=== PATIENT | male | born 1935 | race Caucasian/White ===

== ENCOUNTER → 2017-01-16 | Outpatient (CLI) | payer OTHER ==
[~2017-01-16] MED LIST: ACT30 PO; ASPI325T4 PO; DOXA4TAB2 PO; GLC/500 PO; GLIP-197 PO; LOSA50TA6 PO; METO100T7 PO; OMEP20CA9 PO; SIMV5TAB5 PO; TRIA37.5 PO
[2017-01-16 12:57] LABS: BLOOD UREA NITROGEN 46 mg/dl (7-18); BUN/CREATININE RATIO 24.4 (10-20); CALCIUM 9.4 mg/dl (8.5-10.1); CARBON DIOXIDE 23 mmol/L (21-32); CHLORIDE 108 mmol/L (98-107); CHOLESTEROL 154 mg/dl (0-200); GLUCOSE 143 mg/dl (70-99); POTASSIUM 4.2 mmol/L (3.5-5.1); SODIUM 140 mmol/L (136-145)
[2017-01-16 13:00] LABS: CHOLESTEROL/HDL RATIO 5.1; HDL CHOLESTEROL 30 mg/dl; TRIGLYCERIDES 182 mg/dl (0-150); VERY LOW DENSITY LIPOPROT CALC 36 mg/dl
[2017-01-16 13:09] LABS: ESTIMATED AVERAGE GLUCOSE 174 mg/dl; HA1C FLAG Normal (Normal)
== END | disposition home or self-care (01) ==
LOC: C.LABSPEC 12:16
PROVIDERS: ATTEND Internal Medicine
DX: I10 Essential (primary) hypertension (principal); E78.5 Hyperlipidemia, unspecified; N18.9 Chronic kidney disease, unspecified; E11.9 Type 2 diabetes mellitus without complications

== ENCOUNTER → 2017-07-21 | Outpatient (CLI) | payer OTHER ==
[2017-07-21 13:16] LABS: ALT/SGPT 15 U/L (12-78); AST/SGOT 14 U/L (15-37); BLOOD UREA NITROGEN 51 mg/dl (7-18); BUN/CREATININE RATIO 25.3 (10-20); CALCIUM 9.4 mg/dl (8.5-10.1); CARBON DIOXIDE 24 mmol/L (21-32); CHLORIDE 106 mmol/L (98-107); CHOLESTEROL 175 mg/dl (0-200); GLUCOSE 119 mg/dl (70-99); POTASSIUM 4.4 mmol/L (3.5-5.1); SODIUM 139 mmol/L (136-145); TRIGLYCERIDES 308 mg/dl (0-150); VERY LOW DENSITY LIPOPROT CALC 62 mg/dl
[2017-07-21 13:19] LABS: ALKALINE PHOSPHATASE 62 U/L (45-117); CHOLESTEROL/HDL RATIO 5.6; HDL CHOLESTEROL 31 mg/dl
[2017-07-21 13:25] LABS: ESTIMATED AVERAGE GLUCOSE 169 mg/dl; HA1C FLAG Normal (Normal)
== END | disposition home or self-care (01) ==
LOC: C.LABSPEC 12:27
PROVIDERS: ATTEND Internal Medicine
DX: I10 Essential (primary) hypertension (principal); E78.5 Hyperlipidemia, unspecified; E11.65 Type 2 diabetes mellitus with hyperglycemia; N18.9 Chronic kidney disease, unspecified

== ENCOUNTER → 2018-01-19 | Outpatient (CLI) | payer OTHER ==
[2018-01-19 14:03] LABS: BASO % 0.4 %; BASO ABS # 0.03 K/uL (0-0.2); EOS % 1.2 %; EOS ABS # 0.08 K/uL (0-0.5); HEMATOCRIT 37.7 % (42-52); HEMOGLOBIN 13.1 g/dL (14.0-18.0); IG# 0.03 K/uL (0.00-0.02); LYMPH % 27.9 %; LYMPH ABS # 1.87 K/uL (1.2-3.4); MEAN CORPUSCULAR HEMOGLOBIN 32.7 pg (25-34); MEAN CORPUSCULAR HGB CONC 34.7 g/dl (32-36); MEAN PLATELET VOLUME 10.2 fL (7.4-10.4); MONO ABS # 0.54 K/uL (0.11-0.59); NEUT % 62.1 %; NEUT ABS # 4.16 K/uL (1.4-6.5); PLATELET COUNT 244 K/uL (130-400); RED CELL DISTRIBUTION WIDTH CV 13.3 % (11.5-14.5); RED CELL DISTRIBUTION WIDTH SD 46.1 fL (36.4-46.3); WHITE BLOOD COUNT 6.71 K/uL (4.8-10.8)
[2018-01-19 14:24] LABS: ALBUMIN 3.7 gm/dl (3.4-5.0); ALT/SGPT 16 U/L (12-78); BLOOD UREA NITROGEN 54 mg/dl (7-18); CALCIUM 9.2 mg/dl (8.5-10.1); CARBON DIOXIDE 23 mmol/L (21-32); CHOLESTEROL 159 mg/dl (0-200); CREATININE 2.24 mg/dl (0.60-1.40); GLUCOSE 213 mg/dl (70-99); POTASSIUM 4.1 mmol/L (3.5-5.1); SODIUM 136 mmol/L (136-145)
[2018-01-19 14:27] LABS: ALKALINE PHOSPHATASE 86 U/L (45-117); AST/SGOT 10 U/L (15-37); LDL CHOLESTEROL (DIRECT) 99 mg/dl; TOTAL PROTEIN 7.7 gm/dl (6.4-8.2)
[2018-01-20 07:23] LABS: HEMOGLOBIN A1C 9.8 % (4.5-5.6)
== END | disposition home or self-care (01) ==
LOC: C.LABSPEC 12:49
PROVIDERS: ATTEND Internal Medicine
DX: E11.65 Type 2 diabetes mellitus with hyperglycemia (principal); I10 Essential (primary) hypertension; E78.5 Hyperlipidemia, unspecified

== ENCOUNTER 2023-04-06 10:12 | Inpatient (IN) ==
--- NOTE | 2023-04-06 12:51 | XRay Report ---
XR chest 1V portable HISTORY: 88 years-old Male acute confusion acutely altered mental status COMPARISON: 12/08/2012 TECHNIQUE: Supine AP view of the chest FINDINGS: Cardiac silhouette is enlarged. Pulmonary vascular congestion with interstitial coarsening. Layering pleural effusions with bibasilar consolidation. Atherosclerosis of the aorta. No pneumothorax. Bones appear grossly intact. IMPRESSION: 1. Cardiomegaly with pulmonary edema. 2. Layering pleural effusions with bibasilar consolidation. ACT 112: Negative or not required by law. The above report was generated using voice recognition software. It may contain grammatical, syntax o r spelling errors. Electronically signed by: Juice Lowry M.D. 04/06/2023 12:50 PM
--- NOTE | 2023-04-06 13:03 | History & Physical Report ---
Date of Service April 06, 2023 Assessment & Plan (1) Acute metabolic encephalopathy: Plan: Current sedation due to multiple benzodiazepines and anti-psychotic given in [place] - will wait for these to wean off. Agitated prior to this and confused per his . Currently maintaining airway without hypercapnia on ABG. May need further antipsychotics as he wakes up. (2) Acute respiratory failure with hypoxia: Plan: Aim O2 sats > 94% Secondary to sedation, pulmonary edema and bilateral pleural effusion although unclear if these are acute or chronic (3) Elevated LFTs: Plan: Main presenting symptom of abdominal pain, vomiting Nothing seen on CT A/P at [place] except possible gallstone and recommended US liver - ordered Hepatitis panel ordered Acetaminophen level negative ?acute cholecystitis ?ehrlichiosis (4) Pulmonary edema: Plan: With bilateral pleural effusions. BNP elevated. Hypervolemic on exam. ?chronic due to CKD vs. acute Troponin I appears stable - not consistent with GA, suspect demand-ischemia. TTE ordered. (5) Ehrlichiosis: Plan: Possible diagnosis - single inclusion body on one monocyte present on smear - concerning for ehrlichiosis. Will be assessed by pathology tomorrow. Decreased WBC (although this is similar to prior labs last year), elevated LFTs, mild thrombocytopenia Start doxycycline 100mg IV BID (6) Iron deficiency anemia: Plan: Concern for acute vs. chronic GI bleed. Appears relatively stable since [place] ER however. History of gastric ulcers Pantoprazole 80mg IV now then 40mg IV BID Iron sats 5% Type and cross sent to hold 2 units and blood consent signed Aim Hgb > 7 FOB ordered LDH also elevated therefore possibly some component of hemolytic anemia ?related to ehrlichiosis. (7) Abnormal urine sediment: Plan: Long string sediment in urine Per lab does not appear consistent with clot or parasite Surgical pathology on sample ordered (8) Hypertension: Plan: Hold all his anti-hypertensives at this time due to low BP. Lasix 40mg IV given this morning, will defer giving ongoing pending repeat labs and I&Os (9) Hematuria: Plan: Unclear cause of hematuria at this time as nothing seen on CT A/P at [place] ?traumatic catheterization Hold aspirin - unclear why he takes this, no Hx GA or stroke (10) Chronic kidney disease, stage 4 (severe): Plan: Cr at baseline. UA with protein and blood Will get Protein/CR ratio to assess for nephrotic range proteinuria (11) BPH (benign prostatic hyperplasia): Plan: Hold doxazosin, mulligan catheter in place (12) T2DM (type 2 diabetes mellitus): Plan: HbA1C 7.5 in April 2022 Hold all diabetic medication at this time. Restart on basal bolus insulin as needed once glucose starts to improve. BSG q2h until stable with hypoglycemia protocol. Avoid D5W due to hypervolemia. (13) Hypoglycemia: (14) Bilateral pleural effusion: Plan VTE Prophyalxis - chemical deferred given possibility of acute GI bleed Diet - NPO Disposition - admit to PCU Admission and Anticipated Discharge Date Admission Date: April 06, 2023 History of Present Illness Chief Complaint: Altered mental status Primary Care Provider: Mirtha Malloy Nimesh Lind is an 88 year old male who was accepted by my colleague for transfer from [facility] due to altered mental status. Unable to get any history from the patient due to current sedation after benzodiazepines given at [place]. His and two daughters later arrived at bedside to give history. They report significant decline over the last two days with him complaining of abdominal pain, one episode of vomiting and diarrhea. No fever, chills, shortness of breath, chest pain. He has a cough although unclear how long this has been going on for. Associated generalized weakness, confusion and sleeping throughout the day. His and daughters are in disagreement about more chronic decline however and it appears over the last year or 6 months he has been getting weaker and increased sleeping throughout the day but nothing like the last few days. In the ER at [place] there was some concern of sepsis with hypoglycemia (he is on glipizide and Lantus for his diabetes) so he received Zosyn, 1L NSS bolus and dextrose. He was agitated and pulling at his IVs therefore initially given droperidol and later midazolam then lorazepam prior to transfer. Subsequent CT and lab workup was concerning for elevated LFTs with leukopenia without subsequent imaging changes on CT. Allergies Allergy/AdvReac Type Severity Reaction Status Date / Time No Known Allergies Allergy Unverified 07/09/16 10:03 Home Medications Medication Instructions Recorded Confirmed Type allopurinol 100 mg tablet 100 mg PO DAILY 04/06/23 04/06/23 History aspirin 325 mg tablet 325 mg PO DAILY 04/06/23 04/06/23 History doxazosin 4 mg tablet 4 mg PO HS 04/06/23 04/06/23 History glipizide 5 mg tablet, extended 5 mg PO BID 04/06/23 04/06/23 History release 24 hr insulin glargine 100 unit/mL (3 12 unit subcut DAILY 04/06/23 04/06/23 History mL) subcutaneous pen (Lantus Solostar U-100 Insulin) losartan 50 mg tablet 50 mg PO DAILY 04/06/23 04/06/23 History metoprolol succinate 100 mg 100 mg PO DAILY 04/06/23 04/06/23 History tablet,extended release 24 hr omeprazole 20 mg capsule,delayed 20 mg PO DAILY 04/06/23 04/06/23 History release pioglitazone 30 mg tablet 30 mg PO DAILY 04/06/23 04/06/23 History simvastatin 5 mg tablet 5 mg PO HS 04/06/23 04/06/23 History triamterene 37.5 1 tab PO DAILY 04/06/23 04/06/23 History mg-hydrochlorothiazide 25 mg tablet Past Med/Surg History Medical History BPH (benign prostatic hyperplasia) Chronic kidney disease, stage 4 (severe) Essential tremor History of gastric ulcer Hyperlipidemia Hypertension Inguinal hernia T2DM (type 2 diabetes mellitus) Surgical History History of resection of small bowel Social History Smoking Status: Former smoker Age Quit Using Tobacco: 38; Hx Alcohol Use: No Hx Substance Use: No Preferred Language: Monegasque Communication Ability: Effective Melter Loader Required: No Beliefs That Will Affect Care: None Current Living Situation: Spouse Current Living Situation Comment: unable to take care of patient, needs assistance. Other Information That Helps Us Care for You: No Feels Safe at Home: Yes Safety Concerns: Feels Safe At This Time Assistive Devices: Cane, Denture - Upper, Denture - Lower and Glasses Review of Systems Review of Systems: Unobtainable due to cognitive status Physical Exam Constitutional: well developed; + not well nourished and no acute distress Eyes: + conjunctival abnormality (pale) ENMT: Mouth: + dry oral mucous membranes (no thrush noted) Respiratory: + labored breathing, + uses accessory muscles and + prolonged expiratory phase; not tachypneic Auscultation: + breath sounds absent (bibasal) and + diminished lung sounds (throughout); no crackles, no rales, no rhonchi and no wheezes Cardiovascular: Rate/Rhythm: regular rate and regular rhythm Heart Sounds: no murmur Vessels: no JVD Extremities: + pedal edema (2+ to knees pitting equal b/l); + abnormal capillary refill (reduced peripherally 7s, normal centrally) and no calf tenderness Gastrointestinal (Abdomen): Inspection/Auscultation: abdomen normal to i nspection, + abdomen distended and + hypoactive bowel sounds Percussion/Palpation: + abdomen tender (RUQ), + guarding and abdomen soft; abdomen not rigid Skin: + pallor Neurologic: + does not move all extremities (moving both upper extremities equally) and + not awake (mumbles to noxious stimuli) Psychiatric: Orientation: + not alert Results & Data Results & Data Laboratory Results [place] labs: Pertinent Labs 2:20am: Glucose 59, BUN 59.4, Cr 2.2, Jorgito 2.6, ALP 319, AST 221, ALT 153, Na 146, K 5.2, CO2 21.6, Lactate 1.7, Lipase 50 Troponin I HS 117 -> 123 (4:15am) -> 118 [7:10am] INR 1.35, PTT 27.2 WBC 2.77 (neutrophil predominant), Hgb 8.0 -> 7.1, Plt 112 ProBNP - 53579 Abnormal lab results 04/06/23 04/06/23 04/06/23 Range/Units 12:43 12:43 13:04 WBC 3.19 L (4.8-10.8) K/ul RBC 2.10 L (4.70-6.10) M/uL Hgb 7.6 L (14.0-18.0) g/dl Hct 22.7 L (42.0-52.0) % MCV 108.1 H (80.0-100.0) fL MCH 36.2 H (25.0-34.0) pg RDW Std Deviation 65.4 H (36.4-46.3) fL RDW Coeff of Iman 16.7 H (11.5-14.5) % Plt Count 122 L (130-400) K/uL Lymph # (Auto) 0.17 L (1.2-3.4) K/uL [place] # (Auto) 0.08 L (0.11-0.59) K/uL PT (9.0-12.0) Seconds INR (0.9-1.1) ABG pO2 (80-95) mmHg ABG O2 Saturation (90-95) % Chloride (98-107) mmol/L BUN (6-23) mg/dl Creatinine (0.6-1.4) mg/dl BUN/Creatinine Ratio (10-20) Glucose (70-99(Fasting)) mg/dl Iron (35-175) mcg/dl Transferrin % Sat (20-50) % Total Bilirubin (0.2-1.0) mg/dl AST (13-39) U/L ALT (7-52) U/L Alkaline Phosphatase (34-104) U/L Lactate Dehydrogenase (86-244) U/L Total Creatine Kinase (30-223) U/L Troponin I High Sens (0-20) pg/ml C-Reactive Protein (0-0.5) mg/dl B-Natriuretic Peptide (0-100) pg/ml Total Protein (6.0-8.3) gm/dl Globulin (2.5-4.0) gm/dl Lipase (11-82) U/L Procalcitonin (0-0.5) ng/ml Urine Appearance Turbid A (Clear) Urine Protein 2+ H (Negative) Urine Blood 3+ H (Negative) Ur Leukocyte Esterase Trace H (Negative) Urine RBC (Auto) >30 H (0-4) /hpf U Benzodiazepines Scrn Pos H (Neg) Crossmatch 04/06/23 04/06/23 04/06/23 Range/Units 13:04 13:04 13:04 WBC (4.8-10.8) K/ul RBC (4.70-6.10) M/uL Hgb (14.0-18.0) g/dl Hct (42.0-52.0) % MCV (80.0-100.0) fL MCH (25.0-34.0) pg RDW Std Deviation (36.4-46.3) fL RDW Coeff of Iman (11.5-14.5) % Plt Count (130-400) K/uL Lymph # (Auto) (1.2-3.4) K/uL [place] # (Auto) (0.11-0.59) K/uL PT 13.3 H (9.0-12.0) Seconds INR 1.2 H (0.9-1.1) ABG pO2 (80-95) mmHg ABG O2 Saturation (90-95) % Chloride 115 H (98-107) mmol/L BUN 63 H (6-23) mg/dl Creatinine 2.25 H (0.6-1.4) mg/dl BUN/Creatinine Ratio 28.0 H (10-20) Glucose 62 L (70-99(Fasting)) mg/dl Iron 13 L (35-175) mcg/dl Transferrin % Sat 5 L (20-50) % Total Bilirubin 3.6 H (0.2-1.0) mg/dl AST 121 H (13-39) U/L ALT 106 H (7-52) U/L Alkaline Phosphatase 248 H (34-104) U/L Lactate Dehydrogenase (86-244) U/L Total Creatine Kinase 473 H (30-223) U/L Troponin I High Sens 136.7 H* (0-20) pg/ml C-Reactive Protein 15.01 H (0-0.5) mg/dl B-Natriuretic Peptide (0-100) pg/ml Total Protein 5.6 L (6.0-8.3) gm/dl Globulin 2.1 L (2.5-4.0) gm/dl Lipase 9 L (11-82) U/L Procalcitonin 1.86 H (0-0.5) ng/ml Urine Appearance (Clear) Urine Protein (Negative) Urine Blood (Negative) Ur Leukocyte Esterase (Negative) Urine RBC (Auto) (0-4) /hpf U Benzodiazepines Scrn (Neg) Crossmatch 04/06/23 04/06/23 04/06/23 Range/Units 13:04 13:04 13:04 WBC (4.8-10.8) K/ul RBC (4.70-6.10) M/uL Hgb (14.0-18.0) g/dl Hct (42.0-52.0) % MCV (80.0-100.0) fL MCH (25.0-34.0) pg RDW Std Deviation (36.4-46.3) fL RDW Coeff of Iman (11.5-14.5) % Plt Count (130-400) K/uL Lymph # (Auto) (1.2-3.4) K/uL [place] # (Auto) (0.11-0.59) K/uL PT (9.0-12.0) Seconds INR (0.9-1.1) ABG pO2 (80-95) mmHg ABG O2 Saturation (90-95) % Chloride (98-107) mmol/L BUN (6-23) mg/dl Creatinine (0.6-1.4) mg/dl BUN/Creatinine Ratio (10-20) Glucose (70-99(Fasting)) mg/dl Iron (35-175) mcg/dl Transferrin % Sat (20-50) % Total Bilirubin (0.2-1.0) mg/dl AST (13-39) U/L ALT (7-52) U/L Alkaline Phosphatase (34-104) U/L Lactate Dehydrogenase 335 H (86-244) U/L Total Creatine Kinase (30-223) U/L Troponin I High Sens (0-20) pg/ml C-Reactive Protein (0-0.5) mg/dl B-Natriuretic Peptide 1115 H (0-100) pg/ml Total Protein (6.0-8.3) gm/dl Globulin (2.5-4.0) gm/dl Lipase (11-82) U/L Procalcitonin (0-0.5) ng/ml Urine Appearance (Clear) Urine Protein (Negative) Urine Blood (Negative) Ur Leukocyte Esterase (Negative) Urine RBC (Auto) (0-4) /hpf U Benzodiazepines Scrn (Neg) Crossmatch See Detail 04/06/23 Range/Units 13:14 WBC (4.8-10.8) K/ul RBC (4.70-6.10) M/uL Hgb (14.0-18.0) g/dl Hct (42.0-52.0) % MCV (80.0-100.0) fL MCH (25.0-34.0) pg RDW Std Deviation (36.4-46.3) fL RDW Coeff of Iman (11.5-14.5) % Plt Count (130-400) K/uL Lymph # (Auto) (1.2-3.4) K/uL [place] # (Auto) (0.11-0.59) K/uL PT (9.0-12.0) Seconds INR (0.9-1.1) ABG pO2 55 L (80-95) mmHg ABG O2 Saturation 85.5 L (90-95) % Chloride (98-107) mmol/L BUN (6-23) mg/dl Creatinine (0.6-1.4) mg/dl BUN/Creatinine Ratio (10-20) Glucose (70-99(Fasting)) mg/dl Iron (35-175) mcg/dl Transferrin % Sat (20-50) % Total Bilirubin (0.2-1.0) mg/dl AST (13-39) U/L ALT (7-52) U/L Alkaline Phosphatase (34-104) U/L Lactate Dehydrogenase (86-244) U/L Total Creatine Kinase (30-223) U/L Troponin I High Sens (0-20) pg/ml C-Reactive Protein (0-0.5) mg/dl B-Natriuretic Peptide (0-100) pg/ml Total Protein (6.0-8.3) gm/dl Globulin (2.5-4.0) gm/dl Lipase (11-82) U/L Procalcitonin (0-0.5) ng/ml Urine Appearance (Clear) Urine Protein (Negative) Urine Blood (Negative) Ur Leukocyte Esterase (Negative) Urine RBC (Auto) (0-4) /hpf U Benzodiazepines Scrn (Neg) Crossmatch Diagnostic Findings [place] ER CT imaging: CT head with age-related involutional brain changes, no acute brain pathology CT A/P wo contrast Suboptimal image quality due to motion artifact. Bilateral pleural effusions and right lower lobe collapse, small hyperdense area seen within gallbladder suggesting gallbladder stone, US recommended for further evaluation, relatively small size of both kidneys with decreased cortical thickness suggesting renal parenchymal disease, prostatic enlargement, bilateral fat-containing small inguinal hernias. Reduced osseus mineralization. DEXA scan advised, subcutaneous lipoma seen at the anterior aspect of right thigh CT thorax wo contrast - Suboptimal image quality due to motion artefact. Moderate bilateral pleural effusions and bilateral lower lung lobes atelectasis. Cardiomegaly. Atherosclerotic calcification of the aorta and coronaries. XR chest 1V portable HISTORY: 88 years-old Male acute confusion acutely altered mental status COMPARISON: 12/08/2012 TECHNIQUE: Supine AP view of the chest FINDINGS: Cardiac silhouette is enlarged. Pulmonary vascular congestion with interstitial coarsening. Layering pleural effusions with bibasilar consolidation. Atherosclerosis of the aorta. No pneumothorax. Bones appear grossly intact. IMPRESSION: 1. Cardiomegaly with pulmonary edema. 2. Layering pleural effusions with bibasilar consolidation. Medications Administered [place] ER Medications Given: Droperidol 2.5mg IM 3:49am Dextrose 50% 50 ml 3:21am NSS 1L bolus 3:21am Zosyn 4.5g IV Lasix 40mg IV Midazolam 2mg IV 6:21am Dextrose 50ml 8:01am Lorazepam 1mg 9:03am ECG Rate (beats per minute): 76 Rhythm: normal sinus Findings: + other (rightward axis); no acute ischemic change Comparison ECG Date: from (Dec 08, 2012) Change: the following changes noted (QRS shifted right) Code Status & VTE Plan Code Status DNR/DNI VTE Prophylaxis Plan VTE Prophylaxis will be ordered: No Critical Care Time Prolonged Care Time Prolonged Care Time: Yes Total Prolonged Care Time: 65 PG Care Time/CCT Total # of Minutes Spent Total Time Spent with Patient: Total time spent is greater than 50% in coordination of care (as documented) at patient's floor/unit and/or counseling patient: Prolonged Care Time Prolonged Care Time: Yes Total Prolonged Care Time: 65 Coding Level of Care Code 73542 INT INP/OBS CARE 3/75MIN Diagnoses Acute metabolic encephalopathy G93.41 Acute respiratory failure with hypoxia J96.01 Elevated LFTs R79.89 Pulmonary edema J81.1 Ehrlichiosis A77.40 Iron deficiency anemia D50.9 Abnormal urine sediment R82.90 Hypertension I10 Hematuria R31.9 Chronic kidney disease, stage 4 (severe) N18.4 BPH (benign prostatic hyperplasia) N40.0 T2DM (type 2 diabetes mellitus) E11.9 Hypoglycemia E16.2 Bilateral pleural effusion J90 Additional Codes Prolonged Care Time - Prolonged Care Time: Yes ([id number])
[2023-04-06] MEDS ORDERED: PANTOprazole 80 MG in DEXTROSE 5% 100 ML IV STA (13:13)
[2023-04-06] MEDS ORDERED: SODIUM CHLORIDE 0.9% 250 ML IV PRN (13:18)
[2023-04-06 13:22] LABS: Base Excess ABG -4.4 mEq/L (-9-1.8); HCO3 ABG 20 mmol/L (19-24); PCO2 ABG 35 mmHg (35-46); PO2 ABG 55 mmHg (80-95); pH ABG 7.37 (7.35-7.45)
[2023-04-06 13:31] LABS: Appearance Urine Turbid (Clear); Bacteria Urine Automated Negative (Negative); Bilirubin Urine Negative (Negative); Blood Urine 3+ (Negative); Color Urine Red; Epithelial Cell Urine Auto 0-5 /lpf (0-5); Glucose Urine UA Negative (Negative); Ketones Urine Negative (Negative); Leukocyte Esterase Urine Trace (Negative); Nitrite Urine Negative (Negative); Protein Urine 2+ (Negative); RBC Urine Automated >30 /hpf (0-4); Specific Gravity Urine 1.009 (1.000-1.030); Urobilinogen Urine Negative (Negative)
[2023-04-06 13:36] LABS: Allen Test Pos (Pos); Oxygen Saturation ABG 85.5 % (90-95)
[2023-04-06 13:46] LABS: Amphetamines+Metham, Urine Neg (Neg); Barbiturates, Urine Neg (Neg); Benzodiazepine, Urine Pos (Neg); Cocaine, Urine Neg (Neg); MDMA (Ecstacy), Urine Neg (Neg); Methadone, Urine Neg (Neg); Opiate, Urine Neg (Neg); Phencyclidine, Urine Neg (Neg)
[2023-04-06 13:51] LABS: Alanine Aminotransferase 106 U/L (7-52); Albumin Globulin Ratio 1.7 (0.9-2); Albumin Level 3.5 gm/dl (3.4-5.0); Alkaline Phosphatase 248 U/L (34-104); Anion Gap 7 (3-11); Aspartate Aminotransferase 121 U/L (13-39); Bilirubin,Total 3.6 mg/dl (0.2-1.0); Blood Urea Nitrogen 63 mg/dl (6-23); C Reactive Protein 15.01 mg/dl (0-0.5); Calcium 9.8 mg/dl (8.6-10.3); Carbon Dioxide 23 mmol/L (21-32); Chloride 115 mmol/L (98-107); Est GFR (African American) 29.1 ml/min; Est GFR (Non-African American) 25.1 ml/min; Globulin 2.1 gm/dl (2.5-4.0); Glucose 62 mg/dl (70-99(Fasting)); Iron 13 mcg/dl (35-175); Lipase 9 U/L (11-82); Magnesium 1.9 mg/dl (1.7-2.4); Potassium 4.7 mmol/L (3.5-5.1); Sodium 145 mmol/L (136-145); Total Iron Binding Cap Calc 267 mcg/dl (250-450); Total Protein 5.6 gm/dl (6.0-8.3); Transferrin (FE) Percent Satur 5 % (20-50); Unsaturated Iron Binding Cap 254 mcg/dl (155-355)
[2023-04-06 13:58] LABS: Hematocrit (blood only) 22.7 % (42.0-52.0); Hemoglobin 7.6 g/dl (14.0-18.0); Mean Corpuscular Hemoglobin 36.2 pg (25.0-34.0); Mean Corpuscular Hgb Conc 33.5 g/dL (32.0-36.0); Mean Corpuscular Volume 108.1 fL (80.0-100.0); Mean Platelet Volume 11.1 fL (9.4-12.4); Platelet Count 122 K/uL (130-400); RDW Coefficient of Variation 16.7 % (11.5-14.5); RDW Standard Deviation 65.4 fL (36.4-46.3); White Blood Count 3.19 K/ul (4.8-10.8)
[2023-04-06 14:01] LABS: INR 1.2 (0.9-1.1); Partial Thromboplastin Ratio 1.1; Prothrombin Time 13.3 Seconds (9.0-12.0)
[2023-04-06 14:07] LABS: Troponin I High Sensitivity 136.7 pg/ml (0-20)
[2023-04-06 14:11] LABS: Ferritin 161.5 ng/ml (8-388)
[2023-04-06 14:18] LABS: Procalcitonin 1.86 ng/ml (0-0.5)
[2023-04-06] MEDS ORDERED: ONDANSETRON INJ 2 MG/ML 2 ML VIAL IV PRN (14:21)
[2023-04-06 14:24] LABS: Lyme Ab IgG w/WB Rflx Negative (Negative); Lyme Ab IgM w/WB Rflx Negative (Negative)
[2023-04-06 14:35] LABS: Dohle Bodies 2+; Immature Granulocytes # (auto) 0.01 K/uL (0.01-0.20); Immature Granulocytes % (auto) 0.3 %; Lymphocytes # (auto) 0.17 K/uL (1.2-3.4); Lymphocytes % (auto) 5.3 %; Monocytes # (auto) 0.08 K/uL (0.11-0.59); Monocytes % (auto) 2.5 %; Neutrophils # (auto) 2.93 K/uL (1.40-6.50); Neutrophils % (auto) 91.9 %; Ovalocytes 1+; Reticulocytes # 0.02 10^6/uL (0.02-0.10)
[2023-04-06] MEDS ORDERED: DOXYCYCLINE HYCLATE 100 MG in DEXTROSE 5% 100 ML IV STA (14:35)
[2023-04-06] MEDS ORDERED: GLUCOSE 10 TAB/TUBE PO PRN (14:41)
[2023-04-06] MEDS ORDERED: DEXTROSE 50% 50 ML SYRINGE IV PRN (14:41)
[2023-04-06] MEDS ORDERED: GLUCOSE 40% GEL 15 GM TUBE PO PRN (14:41)
[2023-04-06] MEDS ORDERED: CARBOHYDRATES FOR HYPOGLYCEMIA PO PRN (14:41)
[2023-04-06] MEDS ORDERED: GLUCAGON FOR INJ 1 MG VIAL SQ PRN (14:41)
[2023-04-06] MEDS ORDERED: Patient's HEIGHT &/or WEIGHT Needed SCH (14:45)
[2023-04-06 15:01] LABS: Creatine Kinase 473 U/L (30-223)
[2023-04-06 16:23] LABS: Adenovirus PCR Not Detected (NotDetected); Bordetella parapertussis PCR Not Detected (NotDetected); Bordetella pertussis PCR Not Detected (NotDetected); Chlamydia pneumoniae PCR Not Detected (NotDetected); Coronavirus 229E PCR Not Detected (NotDetected); Coronavirus CoV-2 (COVID19)PCR Not Detected (NotDetected); Coronavirus HKU1 PCR Not Detected (NotDetected); Coronavirus NL63 PCR Not Detected (NotDetected); Coronavirus OC43PCR Not Detected (NotDetected); Human Metapneumovirus PCR Not Detected (NotDetected); Influenza A PCR Not Detected (NotDetected); Influenza B PCR Not Detected (NotDetected); Mycoplasma pneumoniae PCR Not Detected (NotDetected); Parainfluenza Virus 1 PCR Not Detected (NotDetected); Parainfluenza Virus 2 PCR Not Detected (NotDetected); Parainfluenza Virus 3 PCR Not Detected (NotDetected); Parainfluenza Virus 4 PCR Not Detected (NotDetected); Respiratory Syncytial VirusPCR Not Detected (NotDetected); Rhinovirus/Enterovirus PCR Not Detected (NotDetected)
--- NOTE | 2023-04-06 16:28 | Ultrasound Report ---
ABDOMINAL ULTRASOUND, RIGHT UPPER QUADRANT HISTORY: Acute right upper quadrant abdominal pain elevated LFTs ?CBD, acute estevan. COMPARISON: CT 12/09/2012 FINDINGS: Pancreas: The pancreas is obscured by bowel gas. Liver: 16 cm in length. No hepatic mass identified.. Gallbladder: Mild gallbladder distention. The bladder wall measures up to 5 mm. Sludge filled gallbla dder with possible associated cholelithiasis. No pericholecystic edema. Negative sonographic Elizabeth's sign. CBD: 0.2 cm. Right kidney: Cortical thinning of the right kidney. No hydronephrosis. IMPRESSION: 1. Sludge-filled gallbladder with possible cholelithiasis and mild gallbladder wall thickening. No pe richolecystic fluid identified and the sonographic Elizabeth's sign was reported as negative. Findings c ould be correlated with nuclear medicine hepatobiliary scan to exclude acute cholecystitis. 2. No biliary ductal dilation. ACT 112: Negative or not required by law. Electronically signed by: Juice Lowry M.D. 04/06/2023 4:25 PM
[2023-04-06 17:12] LABS: Total Protein Urine Random 61.7 mg/dl (0-11.9)
[2023-04-06 17:18] LABS: Creatinine Urine Random 18.6 mg/dl; Protein Creatinine Ratio Urine 3.3 (0-0.2)
--- NOTE | 2023-04-06 17:50 | Communication Note ---
Date of Service: April 06, 202311/04 blood cultures in anaerobic bottle positive for gram negative rods at [facility]. They will call with final results. Urine analysis did not reflex to culture there but asked to culture this sample in addition. Zosyn given in [facility] approximately 12 hours ago. Will continue IV zosyn here pending full culture results. US liver equivocal for infection, WBC decreased rather than increased which is atypical therefore will continue with doxycycline in addition. However, most likely diagnosis given GNR in blood and elevated LFTs would be acute estevan. General surgery consulted. HIDA scan ordered for AM. No CBD dilatation on US - MRCP deferred unless LFTs getting worse.
[2023-04-06] MEDS ORDERED: PIPERACILLIN/TAZOBACTAM 4.5 GM in DEXTROSE 5% 100 ML IV ONE (18:00)
[2023-04-06 18:27] LABS: Hematocrit (blood only) 22.5 % (42.0-52.0); Hemoglobin 7.7 g/dl (14.0-18.0); Mean Corpuscular Hemoglobin 36.2 pg (25.0-34.0); Mean Corpuscular Hgb Conc 34.2 g/dL (32.0-36.0); Mean Corpuscular Volume 105.6 fL (80.0-100.0); Nucleated RBC # (auto) 0.02 K/uL (0-0.12); Nucleated RBC % (auto) 0.5 %; Platelet Count 116 K/uL (130-400); RDW Coefficient of Variation 16.7 % (11.5-14.5); RDW Standard Deviation 64.1 fL (36.4-46.3); Red Blood Count 2.13 M/uL (4.70-6.10); White Blood Count 3.66 K/ul (4.8-10.8)
[2023-04-06 18:41] LABS: Albumin Globulin Ratio 1.4 (0.9-2); Albumin Level 3.3 gm/dl (3.4-5.0); BUN Creatinine Ratio 27.5 (10-20); Bilirubin,Total 3.7 mg/dl (0.2-1.0); Calcium 9.7 mg/dl (8.6-10.3); Creatinine Clr Calc Pharmacy 26.3 ml/min; Est GFR (African American) 28.5 ml/min; Est GFR (Non-African American) 24.6 ml/min; Globulin 2.3 gm/dl (2.5-4.0); Potassium 4.6 mmol/L (3.5-5.1); Total Protein 5.6 gm/dl (6.0-8.3)
[2023-04-06] MEDS ORDERED: HALOPERIDOL LACTATE 5 MG/ML 1 ML VIAL IM STA (18:48)
[2023-04-06 18:54] LABS: Troponin I High Sensitivity 143.5 pg/ml (0-20)
[2023-04-06] MEDS ORDERED: FUROSEMIDE 40 MG/4 ML VIAL IV STA (20:16)
--- NOTE | 2023-04-06 20:22 | Surgery Consultation ---
Date of Consultation April 06, 2023 Assessment & Plan (1) Elevated LFTs: As noted the patient has been transferred to [facility] under the care of the [facility] physician group hospitalist. I had a lengthy discussion with the hospitalist concerning this patient and we will proceed as follows: As noted the patient has been started on broad-spectrum antibiotics (Zosyn, doxycycline) due to the possibility of ehrlichiosis and due to gram-negative bacilli noted on 1 blood culture from [facility]. There is concern the patient may have an intra-abdominal source. Cholecystitis is unable to be excluded at this time so HIDA scan has been ordered which will likely happen on 04/07/2023 at the earliest. As the CT scan from [facility] is noted to be suboptimal the hospitals are in the process of repeating the scan. We will follow for the results of these with additional recommendations to follow. After discussion with the hospitalist we do feel that the patient is likely a poor surgical candidate due to concern for his elevated troponin and CHF. The patient is noted to be anemic and they are following serial labs and also have the patient on a proton pump inhibitor. Due to concern for possible ehrlichiosis they have sent confirmatory labs Hepatitis profile has been ordered due to patient's elevated LFTs The admitting hospitalist did discuss with the family who notes that the patient is a DNR/DNI As noted, after my initial visit with the patient it was elected by the hospital service to perform a repeat CT scan of the abdomen and pelvis. This study was completed and on this study the gallbladder and biliary ductal system appears unremarkable without any calcified gallstones or ductal dilatation. There is some central wall thickening of the proximal transverse colon concerning for colitis. There is no evidence of acute diverticulitis. There is no small bowel obstruction. There is no intraperitoneal free air. The appendix appeared normal on this study. With the results of this study it does not appear that the patient has any intra-abdominal pathology that would require an emergent operation. He is receiving broad-spectrum antibiotics that would cover the noted colitis. As there is still concern that the patient may have cholecystitis noted by previous ultrasound we will continue with the plan to perform a HIDA scan, likely tomorrow. If the patient is noted to have cholecystitis by this study he may best be served by a percutaneous cholecystostomy tube due to his other underlying medical comorbidities. We will continue to follow along while the patient is hospitalized History of Present Illness Reason for Consultation: Abdominal pain, possible cholecystitis Attending Physician: Drew Acevedo MD History of Present Illness This is an 88-year-old male who was transferred to [facility] from [facility]. At the time of my exam the patient was somewhat obtunded and could provide no history whatsoever. There is no family present at the bedside and I did attempt to call the patient's family with no answer. The history I obtained was from review of his medical records as well as discussion with the admitting hospitalist service and the nurses caring for the patient. As noted this is an 88-year-old male who reportedly has had a functional decline from the past 6 months to 1 year that which is gotten markedly worse over the past 2 days. According to reports from the hospitalist the family reported the patient has become more weak and confused and poorly responsive. They notes that he had had 1 episode of nausea and vomiting over the past 2 days and complained of some generalized abdominal pain and diarrhea. There is no reported melena or bright blood per rectum. There have been no reported fevers shakes or chills. The patient went to [facility] where he had labs and imaging. Unfortunately did not have images to view but we did have reports from his imaging. CT scan of the head showed no evidence of stroke or intracranial bleed. A CT scan of the chest showed moderate bilateral pleural effusions with inability to exclude pneumonia. He had a CT scan of the abdomen pelvis that showed concern for gallstones however there is no common bile duct dilatation. He had bilateral fat-containing inguinal hernias. Labs performed included a CBC were white blood cell count was 2.7. Hemoglobin and hematocrit were 8.0 and 24.9. Platelet count was 1 or 14,000. Chemistry profile showed sodium and potassium are 147 and 4.9 with a BUN and creatinine 59 and 2.1. Magnesium was within the normal range. LFTs were elevated with a total bilirubin of 2.7, AST 221, ALT 153, and alkaline phosphatase of 317. His lactic acid level was 1.7 which was normal. His lipase was nonelevated. He had a BNP which was elevated at 12,000. A COVID test was negative. In addition the patient had a high- sensitivity troponin that was elevated at 118 and this was repeated and came back at 123. His INR was 1.3. The patient also had blood cultures checked at [facility] where he had 1 out of 2 blood cultures that came back for gram- negative rods with further sensitivities pending. Due to the patient's elevated LFTs and inability to exclude cholecystitis transfer to [facility] was requested and he was brought here under the service of the [facility] physician group hospitalist. Prior to transfer to [facility] the patient reportedly was given Versed as well as Haldol and Ativan for sedation on transfer. He has not received any other sedating meds since arrival to [facility]. Since arrival to [facility] the patient has had additional imaging and labs performed. He did undergo a chest x-ray that showed cardiomegaly with a layering bilateral pleural effusions. He also had a liver ultrasound that showed mild gallbladder distention which was sludge filled with possible cholelithiasis. There is mild gallbladder wall thickening but no pericholecystic fluid was noted. Acute cholecystitis could not be excluded on this study. Repeat labs at [facility] included a CBC her white blood cell count was 3.7. Hemoglobin and hematocrit were 7.7 and 22.5. Platelet count was 116,000. His INR is 1.2. ABG showed a pH of 7.37 with a PO2 of 55. His PCO2 is 35 and his bicarb level was 20. Chemistry profile showed sodium and potassium were both normal. His BUN and creatinine were 63 and 2.2. Lactic acid level was nonelevated at 1.4. His LFTs remain elevated with a total bilirubin of 3.7, AST 104, ALT 100, alkaline phosphatase of 229. Lipase is also nonelevated. High-sensitivity troponin was elevated at 143. His total CK level was 473 and a lactate dehydrogenase level was 335. Procalcitonin was elevated at 1.86. An EKG was performed that showed sinus rhythm without changes indicative of acute ischemia. The admitting hospitalist also informing that there was concern that patient may have ehrlichiosis. As noted the patient's past records were reviewed and in 2012 the patient did undergo an exploratory laparotomy secondary to intra-abdominal abscesses and this was performed by [facility] physician [facility]. He also has reports from a previous GI consult that shows he had a history of gastric ulcers. Since arrival to [facility] the patient has been placed on a proton pump inhibitor, he has been initiated on Zosyn, he has been initiated on doxycycline, and additional supportive care has been implemented. At the time of my interview the patient was obtunded and could not verbalize any information however he did appear to have abdominal pain with palpation of his abdomen. Allergies Allergy/AdvReac Type Severity Reaction Status Date / Time No Known Allergies Allergy Unverified 07/09/16 10:03 Home Medications Medication Instructions Recorded Confirmed Type allopurinol 100 mg tablet 100 mg PO DAILY 04/06/23 04/06/23 History aspirin 325 mg tablet 325 mg PO DAILY 04/06/23 04/06/23 History doxazosin 4 mg tablet 4 mg PO HS 04/06/23 04/06/23 History glipizide 5 mg tablet, extended 5 mg PO BID 04/06/23 04/06/23 History release 24 hr insulin glargine 100 unit/mL (3 12 unit subcut DAILY 04/06/23 04/06/23 History mL) subcutaneous pen (Lantus Solostar U-100 Insulin) losartan 50 mg tablet 50 mg PO DAILY 04/06/23 04/06/23 History metoprolol succinate 100 mg 100 mg PO DAILY 04/06/23 04/06/23 History tablet,extended release 24 hr omeprazole 20 mg capsule,delayed 20 mg PO DAILY 04/06/23 04/06/23 History release pioglitazone 30 mg tablet 30 mg PO DAILY 04/06/23 04/06/23 History simvastatin 5 mg tablet 5 mg PO HS 04/06/23 04/06/23 History triamterene 37.5 1 tab PO DAILY 04/06/23 04/06/23 History mg-hydrochlorothiazide 25 mg tablet Patient History Medical History BPH (benign prostatic hyperplasia) Chronic kidney disease, stage 4 (severe) Essential tremor History of gastric ulcer Hyperlipidemia Hypertension Inguinal hernia T2DM (type 2 diabetes mellitus) Surgical History History of resection of small bowel Social History Smoking Status: Former smoker Age Quit Using Tobacco: 38; Hx Alcohol Use: No Hx Substance Use: No Preferred Language: Thai Communication Ability: Effective Pesticide Use Medical Coordinator Required: No Beliefs That Will Affect Care: None Current Living Situation: Spouse Current Living Situation Comment: unable to take care of patient, needs assistance. Other Information That Helps Us Care for You: No Feels Safe at Home: Yes Safety Concerns: Feels Safe At This Time Assistive Devices: Cane, Denture - Upper, Denture - Lower and Glasses Review of Systems Review of Systems: Unobtainable due to cognitive status Physical Exam Physical Exam: With the assistance of nursing patient was log-rolled in the bed and he was not noted to have any sacral decubitus ulcers or back wounds. Constitutional: + ill appearing Eyes: Scleral jaundice noted ENMT: Ears: no external ear abnormality Neck: trachea midline Respiratory: Patient appears to be belly breathing. He was able to maintain his airway. Breath sounds are decreased at bases Cardiovascular: Rate/Rhythm: regular rate and regular rhythm Vessels: radial pulses present Gastrointestinal (Abdomen): Abdomen is soft and nonrigid. He had a well-healed midline incision. I did not appreciate any hernias on exam. The patient did appear to have pain with palpation in all areas of his abdomen with not 1 specific area. Musculoskeletal: Feet are warm and nonmottled. There are no nonhealing foot wounds present Skin: no rashes Neurologic: Patient is obtunded and therefore cannot follow commands Genitourinary: Patient had an abrasion on the posterior aspect of his scrotum Results & Data Vital Signs (Past 12 Hours) Vital Signs Temp Pulse Resp BP Pulse Ox O2 Del Method O2 Flow Rate 04/06/23 19:29 36.6 C 82 24 126/76 95 Nasal Cannula 3.0 04/06/23 18:56 36.6 C 80 20 129/75 95 Nasal Cannula 2 04/06/23 15:42 36.6 C 74 20 101/55 L 98 Nasal Cannula 2 04/06/23 12:15 Nasal Cannula 2 04/06/23 12:15 36.9 C 22 134/95 98 Nasal Cannula 2 04/06/23 13:30 111/68 04/06/23 12:26 36.9 C 18 134/95 97 Nasal Cannula 2 PG Care Time/CCT Total # of Minutes Spent Total Time Spent with Patient: Total time spent is greater than 50% in coordination of care (as documented) at patient's floor/unit and/or counseling patient: Coding Level of Care Code 21135 INT INP/OBS CARE MIN Diagnoses Elevated LFTs R79.89
[2023-04-06] MEDS ORDERED: OPTIRAY 320 100ml IV ONE (20:35)
--- NOTE | 2023-04-06 20:38 | Communication Note ---
Date of Service: April 06, 2023 On discussion with surgery PA, despite CT A/P unremarkable for acute pathology at [place] earlier in the day will repeat with IV contrast now as having di ffuse abdominal pain as the sedation has worn off and CT images also not of good quality due to movement artifact at [place]. Urine output only 400ml with 40mg IV lasix given prior to arrival. Almost certainly has a positive balance still today given 1L NSS given in [place]. Patient with significant respiratory distress on exam. Will give additional 40mg IV lasix now.
[2023-04-06] MEDS: PANTOprazole 40 MG in SYRINGE 0 ML IV SCH (20:54)
--- NOTE | 2023-04-06 21:20 | XCELERA ---
[id number]
--- NOTE | 2023-04-06 22:14 | CT Scan Report ---
Exam(s): CT ABDOMEN + PELVIS With Contrast IV Amt: 82ml OPTIRAY 320 EXAM: CT Abdomen and Pelvis With Intravenous Contrast CLINICAL HISTORY: Reason for exam: abdominal pain, GNR bacteremia. TECHNIQUE: Axial computed tomography images of the abdomen and pelvis with intravenous contrast. Automated exposure control was utilized for the study. A dose lowering technique was utilized adhering to the principles of ALARA. CONTRAST: Patient received 82ml OPTIRAY 320 of IV contrast COMPARISON: No relevant prior studies available. FINDINGS: Lung bases: Unremarkable. No mass. No consolidation. ABDOMEN: Liver: Unremarkable. No mass. Gallbladder and bile ducts: Unremarkable. No calcified stones. No ductal dilation. Pancreas: Atrophy of the pancreas. No ductal dilation. Spleen: Unremarkable. No splenomegaly. Adrenals: Unremarkable. No mass. Kidneys and ureters: Unremarkable. No hydronephrosis or delayed nephrogram. Stomach and bowel: Cervical ventral wall thickening of the proximal transverse colon, concerning for mild colitis. Diverticulosis, without acute diverticulitis. No small bowel obstruction. No free intraperitoneal air. PELVIS: Appendix: Normal appendix. Bladder: Decompressed urinary bladder which contains a Rosario catheter and mild wall thickening. Urinalysis recommended to exclude UTI. Reproductive: Enlarged prostate gland measures 6.2 cm. ABDOMEN and PELVIS: Intraperitoneal space: Mild abdominal ascites superior to the pancreas. No free air. Bones/joints: Degenerative changes of the spine. No acute fracture. No dislocation. Soft tissues: Small fat-containing bilateral inguinal hernias. Lipoma in the RIGHT tensor fascia daina measures 9.6 x 4.9 cm. Vasculature: Atherosclerotic changes of the aorta. No abdominal aortic aneurysm. Lymph nodes: Unremarkable. No enlarged lymph nodes. IMPRESSION: 1. Normal appendix. 2. Decompressed urinary bladder which contains a Rosario catheter and mild wall thickening. Urinalysis recommended to exclude UTI. 3. Cervical ventral wall thickening of the proximal transverse colon, concerning for mild colitis. 4. Diverticulosis, without acute diverticulitis. No small bowel obstruction. No free intraperitoneal air. Electronically signed by: Pete Sutton MD 04/06/23 22:13 PM
[2023-04-06] MEDS: LACTULOSE 200GM/700ML WTR ENEMA PR SCH (23:29)
[2023-04-06] MEDS: PIPERACILLIN/TAZOBACTAM 4.5 GM in DEXTROSE 5% 100 ML IV SCH (23:29)
[2023-04-07 01:25] LABS: Hematocrit (blood only) 21.5 % (42.0-52.0); Mean Corpuscular Hemoglobin 35.7 pg (25.0-34.0); Mean Corpuscular Hgb Conc 32.6 g/dL (32.0-36.0); Mean Corpuscular Volume 109.7 fL (80.0-100.0); RDW Coefficient of Variation 16.9 % (11.5-14.5); RDW Standard Deviation 67.4 fL (36.4-46.3); Red Blood Count 1.96 M/uL (4.70-6.10)
[2023-04-07 01:58] LABS: Mean Platelet Volume 11.5 fL (9.4-12.4); Platelet Count 97 K/uL (130-400)
[2023-04-07] MEDS: DOXYCYCLINE HYCLATE 100 MG in DEXTROSE 5% 100 ML IV SCH ×2 (02:30→13:26)
[2023-04-07] MEDS: LACTULOSE 200GM/700ML WTR ENEMA PR SCH (05:44)
[2023-04-07] MEDS: PIPERACILLIN/TAZOBACTAM 4.5 GM in DEXTROSE 5% 100 ML IV SCH ×3 (05:44→22:32)
[2023-04-07 06:31] LABS: Base Excess ABG -1.7 mEq/L (-9-1.8); HCO3 ABG 23 mmol/L (19-24); Oxygen Saturation ABG 98.8 % (90-95); PCO2 ABG 38 mmHg (35-46); PO2 ABG 146 mmHg (80-95); pH ABG 7.39 (7.35-7.45)
[2023-04-07 06:39] LABS: Allen Test Pos (Pos)
[2023-04-07 06:54] LABS: Albumin Globulin Ratio 1.6 (0.9-2); Albumin Level 3.1 gm/dl (3.4-5.0); BUN Creatinine Ratio 27.8 (10-20); Bilirubin,Total 3.1 mg/dl (0.2-1.0); Calcium 9.3 mg/dl (8.6-10.3); Creatinine Clr Calc Pharmacy 25.2 ml/min; Est GFR (African American) 27.7 ml/min; Est GFR (Non-African American) 23.9 ml/min; Potassium 4.1 mmol/L (3.5-5.1); Total Protein 5.1 gm/dl (6.0-8.3)
[2023-04-07 07:02] LABS: Hematocrit (blood only) 21.1 % (42.0-52.0); Hemoglobin 7.3 g/dl (14.0-18.0); Mean Corpuscular Hemoglobin 36.5 pg (25.0-34.0); Mean Corpuscular Hgb Conc 34.6 g/dL (32.0-36.0); Mean Corpuscular Volume 105.5 fL (80.0-100.0); Mean Platelet Volume 11.4 fL (9.4-12.4); Platelet Count 111 K/uL (130-400); RDW Coefficient of Variation 16.4 % (11.5-14.5); RDW Standard Deviation 63.4 fL (36.4-46.3); White Blood Count 3.44 K/ul (4.8-10.8)
[2023-04-07 07:26] LABS: Basophilic Stippling 1+; Echinocytes 1+; Eosinophils # (auto) 0.01 K/uL (0-0.50); Eosinophils % (auto) 0.3 %; Estimated Average Glucose 137 mg/dl; Hemoglobin A1C 6.4 % (4.5-5.6); Lymphocytes # (auto) 0.22 K/uL (1.2-3.4); Lymphocytes % (auto) 6.4 %; Monocytes # (auto) 0.08 K/uL (0.11-0.59); Monocytes % (auto) 2.3 %; Neutrophils # (auto) 3.13 K/uL (1.40-6.50); Ovalocytes 1+; Polychromasia 1+
--- NOTE | 2023-04-07 09:07 | Surgery Progress Note ---
Date of Service April 07, 2023 Assessment & Plan (1) Altered mental status: (2) Abdominal pain: (3) Colitis: Plan: This is the likely source of his abdominal pain as well as gram-negative cultures. Doubt gallbladder etiology although he is scheduled for HIDA scan this morning. Continue IV antibiotics. He is not a surgical candidate at this point in time even if there was a surgical process. We will continue to follow along from the periphery. If he would have acute cholecystitis could consider percutaneous cholecystostomy tube. Admission and Anticipated Discharge Date Admission Date: April 06, 2023 Subjective Patient seen. Still obtunded. Per nursing he is at least interacting with them which is slightly better than yesterday. Physical Exam Physical Exam: Obtunded. Responds to painful stimuli. Not alert or oriented Gastrointestinal (Abdomen): Soft. Mild distention. Diffuse tenderness. Nonspecific tenderness. Results & Data Vital Signs (Past 12 Hours) Vital Signs Temp Pulse Pulse Resp BP Pulse Ox O2 Del Method 04/07/23 07:05 37.2 C 92 H 16 115/66 97 Nasal Cannula 04/07/23 00:01 71 04/07/23 03:19 36.8 C 92 H 20 125/69 99 Nasal Cannula 04/06/23 22:52 35.7 C L 88 19 122/77 97 Nasal Cannula O2 Flow Rate 04/07/23 07:05 3 04/07/23 00:01 04/07/23 03:19 3 04/06/23 22:52 2 PG Care Time/CCT Total # of Minutes Spent Total Time Spent with Patient: Total time spent is greater than 50% in coordination of care (as documented) at patient's floor/unit and/or counseling patient: Coding Level of Care Code 72720 SUB INP/OBS CARE 2/35MIN Diagnoses Altered mental status R41.82 Abdominal pain R10.9 Colitis K52.9
[2023-04-07] MEDS ORDERED: MoRPHine SULFATE 2 MG/ML CARP ONE (09:09)
--- NOTE | 2023-04-07 09:40 | Infectious Disease Consult ---
Date of Consultation April 07, 2023 Assessment & Plan (1) Colitis: (2) Abdominal pain: (3) Altered mental status: Plan #Gram negative sepsis likely GI source #Possible Ehrlichia #Transaminitis #CKD 88 yo M with h/o diabetes mellitus, hypertension, HLD, CKD, small bowel resectionfunctional decline over 6 months admitted with weakness, confusion, emesis after transfer from [facility] to [facility] on 04/06 Per EMR patient has become progressively weak, confused and poorly responsive. 2 days CLINICAL DOCUMENTATION IMPROVEMENT SPECIALIST, began having acute symptoms of nausea and emesis, with abdominal pain and diarrhea. At [facility] CT head negative for acute pathology. CT Chest moderate bilateral pleural effusions with inability to exclude pneumonia. CT abdomen/pelvis that showed concern for gallstones but no common bile duct dilatation. Labs notable for creatinine 2.1, WBC 2.7, Hgb 8.0, platelet count LFTs were elevated with a total bilirubin of 2.7, AST 221, ALT 153, and alkaline phosphatase of 317. His lactic acid level was 1.7 which was normal. Per reports had blood cultures checked at [facility] where he had 1 out of 2 blood cultures that came back for gram-negative rods with further sensitivities pending. Due to the patient's elevated LFTs and inability to exclude cholecystitis transfer to [facility] . [facility] number: [phone], (Lab/micro) Blood culture 12/07: GNR, lactose topography technician aerobic/anaerobic? No pathogen identified yet Urine culture: NG Patient placed on IV Zosyn and transferred to [facility]. On day of admission, additional testing showed on blood smear A single cytoplasmic inclusion in a monocyte is seen and is worrisome for ehrlichiosis. Please correlate clinically and with serology. Thus patient placed on IV Doxycycline. Liver ultrasound Sludge-filled gallbladder with possible cholelithiasis and mild gallbladder wall thickening. No pericholecystic fluid identified and the sonographic Elizabeth's sign was reported as negative. Findings could be correlated with nuclear medicine hepatobiliary scan to exclude acute cholecystitis. CT a/p on 04/06 at [facility] showed Cervical ventral wall thickening of the proximal transverse colon, concerning for mild colitis. HIDA Scan P Discussion: I called and spok with [facility], results back likely tomorrow, Can c/w Zosyn. Await Ehrlichia serologies Would keep on Doxycycline for now Recommend: C/W Zosyn, Doxycycline Follow blood cultures Follow ehrlichia serologies HIDA scan P Follow with you Tiffany Langford MD Infectious Diseases [facility], [facility] Consultation Information Consultation was provided via telemedicine using two-way real-time interactive telecommunication between the patient and the telemedicine provider. For the duration of the visit, the provider was performing the assessment from a different facility than the patient. This includesuse of bluetooth stethoscope forauscultationperformed by the telepresenter that the telemedicine provider can hear if described in the physical exam. Machine Heel Seat Fitter contact information: Please call [facility] Center . (Phone Number For Physician Use Only) After establishing a telemedicine visit, patient was: Patient was verified with two unique identifiers, Patient/authorized rep acknowledged consent and understanding and Gave permission to continue telehealth session Time Spent with Patient: Initial => 55 min History of Present Illness Reason for Consultation: Possible Ehrlichia, Gram negative sepsis Requesting Physician: Dr. Ogden Attending Physician: Any Ogden MD History of Present Illness 88 yo M with h/o diabetes mellitus, hypertension, HLD, CKD, small bowel resectionfunctional decline over 6 months admitted with weakness, confusion, emesis after transfer from [facility] to [facility] on 04/06 Per EMR patient has become progressively weak, confused and poorly responsive. 2 days CLINICAL DOCUMENTATION IMPROVEMENT SPECIALIST, began having acute symptoms of nausea and emesis, with abdominal pain and diarrhea. At [facility] CT head negative for acute pathology. CT Chest moderate bilateral pleural effusions with inability to exclude pneumonia. CT abdomen/pelvis that showed concern for gallstones but no common bile duct dilatation. Labs notable for creatinine 2.1, WBC 2.7, Hgb 8.0, platelet count LFTs were elevated with a total bilirubin of 2.7, AST 221, ALT 153, and alkaline phosphatase of 317. His lactic acid level was 1.7 which was normal. Per reports had blood cultures checked at [facility] where he had 1 out of 2 blood cultures that came back for gram-negative rods with further sensitivities pending. Due to the patient's elevated LFTs and inability to exclude cholecystitis transfer to [facility] . [facility] number: [phone], (Lab/micro) Blood culture 12/07: GNR, lactose topography technician aerobic/anaerobic? No pathogen identified yet Urine culture: NG Patient placed on IV Zosyn and transferred to [facility]. On day of admission, additional testing showed on blood smear A single cytoplasmic inclusion in a monocyte is seen and is worrisome for ehrlichiosis. Please correlate clinically and with serology. Thus patient placed on IV Doxycycline. Liver ultrasound Sludge-filled gallbladder with possible cholelithiasis and mild gallbladder wall thickening. No pericholecystic fluid identified and the sonographic Elizabeth's sign was reported as negative. Findings could be correlated with nuclear medicine hepatobiliary scan to exclude acute cholecystitis. CT a/p on 04/06 at [facility] showed Cervical ventral wall thickening of the proximal transverse colon, concerning for mild colitis. HIDA Scan P Allergies Allergy/AdvReac Type Severity Reaction Status Date / Time No Known Allergies Allergy Unverified 07/09/16 10:03 Home Medications Medication Instructions Recorded Confirmed Type allopurinol 100 mg tablet 100 mg PO DAILY 04/06/23 04/06/23 History aspirin 325 mg tablet 325 mg PO DAILY 04/06/23 04/06/23 History doxazosin 4 mg tablet 4 mg PO HS 04/06/23 04/06/23 History glipizide 5 mg tablet, extended 5 mg PO BID 04/06/23 04/06/23 History release 24 hr insulin glargine 100 unit/mL (3 12 unit subcut DAILY 04/06/23 04/06/23 History mL) subcutaneous pen (Lantus Solostar U-100 Insulin) losartan 50 mg tablet 50 mg PO DAILY 04/06/23 04/06/23 History metoprolol succinate 100 mg 100 mg PO DAILY 04/06/23 04/06/23 History tablet,extended release 24 hr omeprazole 20 mg capsule,delayed 20 mg PO DAILY 04/06/23 04/06/23 History release pioglitazone 30 mg tablet 30 mg PO DAILY 04/06/23 04/06/23 History simvastatin 5 mg tablet 5 mg PO HS 04/06/23 04/06/23 History triamterene 37.5 1 tab PO DAILY 04/06/23 04/06/23 History mg-hydrochlorothiazide 25 mg tablet Patient History Medical History BPH (benign prostatic hyperplasia) Chronic kidney disease, stage 4 (severe) Essential tremor History of gastric ulcer Hyperlipidemia Hypertension Inguinal hernia T2DM (type 2 diabetes mellitus) Surgical History History of resection of small bowel Social History Smoking Status: Former smoker Age Quit Using Tobacco: 38; Hx Alcohol Use: No Hx Substance Use: No Preferred Language: Afghan Communication Ability: Unable Installer Apprentice Required: No Beliefs That Will Affect Care: None Current Living Situation: Spouse Current Living Situation Comment: unable to take care of patient, needs assistance. Other Information That Helps Us Care for You: No Feels Safe at Home: Yes Safety Concerns: Feels Safe At This Time Assistive Devices: Cane Physical Exam Physical Exam: Opens eyes to name Tremulous Soft NT ND Results & Data Vital Signs (Past 12 Hours) Vital Signs Temp Pulse Pulse Resp BP Pulse Ox O2 Del Method 04/07/23 07:05 37.2 C 92 H 16 115/66 97 Nasal Cannula 04/07/23 00:01 71 04/07/23 03:19 36.8 C 92 H 20 125/69 99 Nasal Cannula 04/06/23 22:52 35.7 C L 88 19 122/77 97 Nasal Cannula O2 Flow Rate 04/07/23 07:05 3 04/07/23 00:01 04/07/23 03:19 3 04/06/23 22:52 2 Laboratory Results Laboratory Results - last 48 hr 04/06/23 04/06/23 04/06/23 12:43 12:43 12:43 WBC RBC Hgb Hct MCV MCH MCHC RDW Std Deviation RDW Coeff of Iman Plt Count MPV Immature Gran % (Auto) Neut % (Auto) Lymph % (Auto) Sebastian % (Auto) Eos % (Auto) Baso % (Auto) Reticulocyte % (Auto) Neut # (Auto) Lymph # (Auto) Sebastian # (Auto) Eos # (Auto) Baso # (Auto) Reticulocyte # Immature Gran # (Auto) Absolute Nucleated RBC Nucleated RBC % (auto) Blood Smear Review Dohle Bodies Polychromasia Basophilic Stippling Ovalocytes Echinocytes ESR PT INR APTT PTT Ratio ABG pH ABG pCO2 ABG pO2 ABG HCO3 ABG O2 Saturation ABG Base Excess Silverio Test Oxygen Given Sodium Potassium Chloride Carbon Dioxide Anion Gap BUN Creatinine Est Cr Clr Drug Dosing Est GFR ( Amer) Est GFR (Non-Af Amer) BUN/Creatinine Ratio Glucose POC Glucose Estimat Average Glucose Hemoglobin A1c Lactate Calcium Phosphorus Magnesium Iron TIBC Unsaturated IBC Transferrin % Sat Ferritin Total Bilirubin AST ALT Alkaline Phosphatase Ammonia Lactate Dehydrogenase Total Creatine Kinase Troponin I High Sens C-Reactive Protein B-Natriuretic Peptide Total Protein Albumin Globulin Albumin/Globulin Ratio Lipase Vitamin B12 Folate Procalcitonin Urine Color Red Urine Appearance Turbid A Urine pH 5.0 Ur Specific [place] 1.009 Urine Protein 2+ H Urine Glucose (UA) Negative Urine Ketones Negative Urine Blood 3+ H Urine Nitrite Negative Urine Bilirubin Negative Urine Urobilinogen Negative Ur Leukocyte Esterase Trace H Urine WBC (Auto) 1-5 Urine RBC (Auto) >30 H U Hyaline Cast (Auto) 1-5 U Epithel Cells (Auto) 0-5 Urine Bacteria (Auto) Negative Ur Random Creatinine 18.6 U Random Total Protein 61.7 H Protein/Creatinin Ratio 3.3 H Urine Opiates Screen Neg Ur Methadone, Qual Neg Acetaminophen Urine Barbiturates Neg Ur Phencyclidine (PCP) Neg U Amphetamin/Meth Scrn Neg MDMA (Ecstasy) Screen Neg U Benzodiazepines Scrn Pos H Ur Cocaine Metabolite Neg U Marijuana (THC) Screen Neg Ethyl Alcohol mg/dL Adenovirus (PCR) Anaplasma Smear Babesia Smear B. pertussis DNA (PCR) B.parapertussis DNA PCR Lyme Disease IgG Ab Lyme Disease IgM Ab C. pneumoniae DNA (PCR) Coronavirus OC43 (PCR) Coronavirus HKU1 (PCR) Coronavirus 229E (PCR) SARS-CoV-2 (PCR) Coronavirus NL63 (PCR) Human Metapneumovir PCR Influenza Type A (PCR) Influenza Type B (PCR) M. pneumoniae (PCR) Parainfluenza 1 (PCR) Parainfluenza 2 (PCR) Parainfluenza 3 (PCR) Parainfluenza 4 (PCR) RSV (PCR) Entero/Rhino (PCR) Blood Type Blood Type Recheck Antibody Screen Crossmatch 04/06/23 04/06/23 04/06/23 12:46 12:59 12:59 WBC RBC Hgb Hct MCV MCH MCHC RDW Std Deviation RDW Coeff of Iman Plt Count MPV Immature Gran % (Auto) Neut % (Auto) Lymph % (Auto) Sebastian % (Auto) Eos % (Auto) Baso % (Auto) Reticulocyte % (Auto) Neut # (Auto) Lymph # (Auto) Sebastian # (Auto) Eos # (Auto) Baso # (Auto) Reticulocyte # Immature Gran # (Auto) Absolute Nucleated RBC Nucleated RBC % (auto) Blood Smear Review Dohle Bodies Polychromasia Basophilic Stippling Ovalocytes Echinocytes ESR PT INR APTT PTT Ratio ABG pH ABG pCO2 ABG pO2 ABG HCO3 ABG O2 Saturation ABG Base Excess Silverio Test Oxygen Given Sodium Potassium Chloride Carbon Dioxide Anion Gap BUN Creatinine Est Cr Clr Drug Dosing Est GFR ( Amer) Est GFR (Non-Af Amer) BUN/Creatinine Ratio Glucose POC Glucose 74 Estimat Average Glucose Hemoglobin A1c Lactate 1.4 Calcium Phosphorus Magnesium Iron TIBC Unsaturated IBC Transferrin % Sat Ferritin Total Bilirubin AST ALT Alkaline Phosphatase Ammonia 25.0 Lactate Dehydrogenase Total Creatine Kinase Troponin I High Sens C-Reactive Protein B-Natriuretic Peptide Total Protein Albumin Globulin Albumin/Globulin Ratio Lipase Vitamin B12 Folate Procalcitonin Urine Color Urine Appearance Urine pH Ur Specific [place] Urine Protein Urine Glucose (UA) Urine Ketones Urine Blood Urine Nitrite Urine Bilirubin Urine Urobilinogen Ur Leukocyte Esterase Urine WBC (Auto) Urine RBC (Auto) U Hyaline Cast (Auto) U Epithel Cells (Auto) Urine Bacteria (Auto) Ur Random Creatinine U Random Total Protein Protein/Creatinin Ratio Urine Opiates Screen Ur Methadone, Qual Acetaminophen Urine Barbiturates Ur Phencyclidine (PCP) U Amphetamin/Meth Scrn MDMA (Ecstasy) Screen U Benzodiazepines Scrn Ur Cocaine Metabolite U Marijuana (THC) Screen Ethyl Alcohol mg/dL Adenovirus (PCR) Anaplasma Smear Babesia Smear B. pertussis DNA (PCR) B.parapertussis DNA PCR Lyme Disease IgG Ab Lyme Disease IgM Ab C. pneumoniae DNA (PCR) Coronavirus OC43 (PCR) Coronavirus HKU1 (PCR) Coronavirus 229E (PCR) SARS-CoV-2 (PCR) Coronavirus NL63 (PCR) Human Metapneumovir PCR Influenza Type A (PCR) Influenza Type B (PCR) M. pneumoniae (PCR) Parainfluenza 1 (PCR) Parainfluenza 2 (PCR) Parainfluenza 3 (PCR) Parainfluenza 4 (PCR) RSV (PCR) Entero/Rhino (PCR) Blood Type Blood Type Recheck Antibody Screen Crossmatch 04/06/23 04/06/23 04/06/23 13:04 13:04 13:04 WBC 3.19 L RBC 2.10 L Hgb 7.6 L Hct 22.7 L MCV 108.1 H MCH 36.2 H MCHC 33.5 RDW Std Deviation 65.4 H RDW Coeff of Iman 16.7 H Plt Count 122 L MPV 11.1 Immature Gran % (Auto) 0.3 Neut % (Auto) 91.9 Lymph % (Auto) 5.3 Sebastian % (Auto) 2.5 Eos % (Auto) 0.0 Baso % (Auto) 0.0 Reticulocyte % (Auto) 1.0 Neut # (Auto) 2.93 Lymph # (Auto) 0.17 L Sebastian # (Auto) 0.08 L Eos # (Auto) 0.00 Baso # (Auto) 0.00 Reticulocyte # 0.02 Immature Gran # (Auto) 0.01 Absolute Nucleated RBC Nucleated RBC % (auto) Blood Smear Review Dohle Bodies 2+ Polychromasia Basophilic Stippling Ovalocytes 1+ Echinocytes ESR PT 13.3 H INR 1.2 H APTT 31.0 PTT Ratio 1.1 ABG pH ABG pCO2 ABG pO2 ABG HCO3 ABG O2 Saturation ABG Base Excess Silverio Test Oxygen Given Sodium 145 Potassium 4.7 Chloride 115 H Carbon Dioxide 23 Anion Gap 7 BUN 63 H Creatinine 2.25 H Est Cr Clr Drug Dosing Not Reportable Est GFR ( Amer) 29.1 Est GFR (Non-Af Amer) 25.1 BUN/Creatinine Ratio 28.0 H Glucose 62 L POC Glucose Estimat Average Glucose Hemoglobin A1c Lactate Calcium 9.8 Phosphorus 4.0 Magnesium 1.9 Iron 13 L TIBC 267 Unsaturated IBC 254 Transferrin % Sat 5 L Ferritin 161.5 Total Bilirubin 3.6 H AST 121 H ALT 106 H Alkaline Phosphatase 248 H Ammonia Lactate Dehydrogenase Total Creatine Kinase 473 H Troponin I High Sens 136.7 H* C-Reactive Protein 15.01 H B-Natriuretic Peptide Total Protein 5.6 L Albumin 3.5 Globulin 2.1 L Albumin/Globulin Ratio 1.7 Lipase 9 L Vitamin B12 Folate Procalcitonin Urine Color Urine Appearance Urine pH Ur Specific [place] Urine Protein Urine Glucose (UA) Urine Ketones Urine Blood Urine Nitrite Urine Bilirubin Urine Urobilinogen Ur Leukocyte Esterase Urine WBC (Auto) Urine RBC (Auto) U Hyaline Cast (Auto) U Epithel Cells (Auto) Urine Bacteria (Auto) Ur Random Creatinine U Random Total Protein Protein/Creatinin Ratio Urine Opiates Screen Ur Methadone, Qual Acetaminophen Urine Barbiturates Ur Phencyclidine (PCP) U Amphetamin/Meth Scrn MDMA (Ecstasy) Screen U Benzodiazepines Scrn Ur Cocaine Metabolite U Marijuana (THC) Screen Ethyl Alcohol mg/dL Adenovirus (PCR) Anaplasma Smear See Comment Babesia Smear See Comment B. pertussis DNA (PCR) B.parapertussis DNA PCR Lyme Disease IgG Ab Lyme Disease IgM Ab C. pneumoniae DNA (PCR) Coronavirus OC43 (PCR) Coronavirus HKU1 (PCR) Coronavirus 229E (PCR) SARS-CoV-2 (PCR) Coronavirus NL63 (PCR) Human Metapneumovir PCR Influenza Type A (PCR) Influenza Type B (PCR) M. pneumoniae (PCR) Parainfluenza 1 (PCR) Parainfluenza 2 (PCR) Parainfluenza 3 (PCR) Parainfluenza 4 (PCR) RSV (PCR) Entero/Rhino (PCR) Blood Type Blood Type Recheck Antibody Screen Crossmatch 04/06/23 04/06/23 04/06/23 13:04 13:04 13:04 WBC RBC Hgb Hct MCV MCH MCHC RDW Std Deviation RDW Coeff of Iman Plt Count MPV Immature Gran % (Auto) Neut % (Auto) Lymph % (Auto) Sebastian % (Auto) Eos % (Auto) Baso % (Auto) Reticulocyte % (Auto) Neut # (Auto) Lymph # (Auto) Sebastian # (Auto) Eos # (Auto) Baso # (Auto) Reticulocyte # Immature Gran # (Auto) Absolute Nucleated RBC Nucleated RBC % (auto) Blood Smear Review Dohle Bodies Polychromasia Basophilic Stippling Ovalocytes Echinocytes ESR 7 PT INR APTT PTT Ratio ABG pH ABG pCO2 ABG pO2 ABG HCO3 ABG O2 Saturation ABG Base Excess Silverio Test Oxygen Given Sodium Potassium Chloride Carbon Dioxide Anion Gap BUN Creatinine Est Cr Clr Drug Dosing Est GFR ( Amer) Est GFR (Non-Af Amer) BUN/Creatinine Ratio Glucose POC Glucose Estimat Average Glucose Hemoglobin A1c Lactate Calcium Phosphorus Magnesium Iron TIBC Unsaturated IBC Transferrin % Sat Ferritin Total Bilirubin AST ALT Alkaline Phosphatase Ammonia Lactate Dehydrogenase 335 H Total Creatine Kinase Troponin I High Sens C-Reactive Protein B-Natriuretic Peptide Total Protein Albumin Globulin Albumin/Globulin Ratio Lipase Vitamin B12 Folate Procalcitonin 1.86 H Urine Color Urine Appearance Urine pH Ur Specific [place] Urine Protein Urine Glucose (UA) Urine Ketones Urine Blood Urine Nitrite Urine Bilirubin Urine Urobilinogen Ur Leukocyte Esterase Urine WBC (Auto) Urine RBC (Auto) U Hyaline Cast (Auto) U Epithel Cells (Auto) Urine Bacteria (Auto) Ur Random Creatinine U Random Total Protein Protein/Creatinin Ratio Urine Opiates Screen Ur Methadone, Qual Acetaminophen Urine Barbiturates Ur Phencyclidine (PCP) U Amphetamin/Meth Scrn MDMA (Ecstasy) Screen U Benzodiazepines Scrn Ur Cocaine Metabolite U Marijuana (THC) Screen Ethyl Alcohol mg/dL Adenovirus (PCR) Anaplasma Smear Babesia Smear B. pertussis DNA (PCR) B.parapertussis DNA PCR Lyme Disease IgG Ab Negative Lyme Disease IgM Ab Negative C. pneumoniae DNA (PCR) Coronavirus OC43 (PCR) Coronavirus HKU1 (PCR) Coronavirus 229E (PCR) SARS-CoV-2 (PCR) Coronavirus NL63 (PCR) Human Metapneumovir PCR Influenza Type A (PCR) Influenza Type B (PCR) M. pneumoniae (PCR) Parainfluenza 1 (PCR) Parainfluenza 2 (PCR) Parainfluenza 3 (PCR) Parainfluenza 4 (PCR) RSV (PCR) Entero/Rhino (PCR) Blood Type Blood Type Recheck Antibody Screen Crossmatch 04/06/23 04/06/23 04/06/23 13:04 13:04 13:04 WBC RBC Hgb Hct MCV MCH MCHC RDW Std Deviation RDW Coeff of Iman Plt Count MPV Immature Gran % (Auto) Neut % (Auto) Lymph % (Auto) Sebastian % (Auto) Eos % (Auto) Baso % (Auto) Reticulocyte % (Auto) Neut # (Auto) Lymph # (Auto) Sebastian # (Auto) Eos # (Auto) Baso # (Auto) Reticulocyte # Immature Gran # (Auto) Absolute Nucleated RBC Nucleated RBC % (auto) Blood Smear Review Dohle Bodies Polychromasia Basophilic Stippling Ovalocytes Echinocytes ESR PT INR APTT PTT Ratio ABG pH ABG pCO2 ABG pO2 ABG HCO3 ABG O2 Saturation ABG Base Excess Silverio Test Oxygen Given Sodium Potassium Chloride Carbon Dioxide Anion Gap BUN Creatinine Est Cr Clr Drug Dosing Est GFR ( Amer) Est GFR (Non-Af Amer) BUN/Creatinine Ratio Glucose POC Glucose Estimat Average Glucose Hemoglobin A1c Lactate Calcium Phosphorus Magnesium Iron TIBC Unsaturated IBC Transferrin % Sat Ferritin Total Bilirubin AST ALT Alkaline Phosphatase Ammonia Lactate Dehydrogenase Total Creatine Kinase Troponin I High Sens C-Reactive Protein B-Natriuretic Peptide 1115 H Total Protein Albumin Globulin Albumin/Globulin Ratio Lipase Vitamin B12 487 Folate 11.76 Procalcitonin Urine Color Urine Appearance Urine pH Ur Specific [place] Urine Protein Urine Glucose (UA) Urine Ketones Urine Blood Urine Nitrite Urine Bilirubin Urine Urobilinogen Ur Leukocyte Esterase Urine WBC (Auto) Urine RBC (Auto) U Hyaline Cast (Auto) U Epithel Cells (Auto) Urine Bacteria (Auto) Ur Random Creatinine U Random Total Protein Protein/Creatinin Ratio Urine Opiates Screen Ur Methadone, Qual Acetaminophen Urine Barbiturates Ur Phencyclidine (PCP) U Amphetamin/Meth Scrn MDMA (Ecstasy) Screen U Benzodiazepines Scrn Ur Cocaine Metabolite U Marijuana (THC) Screen Ethyl Alcohol mg/dL Adenovirus (PCR) Anaplasma Smear Babesia Smear B. pertussis DNA (PCR) B.parapertussis DNA PCR Lyme Disease IgG Ab Lyme Disease IgM Ab C. pneumoniae DNA (PCR) Coronavirus OC43 (PCR) Coronavirus HKU1 (PCR) Coronavirus 229E (PCR) SARS-CoV-2 (PCR) Coronavirus NL63 (PCR) Human Metapneumovir PCR Influenza Type A (PCR) Influenza Type B (PCR) M. pneumoniae (PCR) Parainfluenza 1 (PCR) Parainfluenza 2 (PCR) Parainfluenza 3 (PCR) Parainfluenza 4 (PCR) RSV (PCR) Entero/Rhino (PCR) Blood Type AB Negative Blood Type Recheck Antibody Screen NEGATIVE Crossmatch See Detail 04/06/23 04/06/23 04/06/23 13:14 13:22 13:22 WBC RBC Hgb Hct MCV MCH MCHC RDW Std Deviation RDW Coeff of Iman Plt Count MPV Immature Gran % (Auto) Neut % (Auto) Lymph % (Auto) Sebastian % (Auto) Eos % (Auto) Baso % (Auto) Reticulocyte % (Auto) Neut # (Auto) Lymph # (Auto) Sebastian # (Auto) Eos # (Auto) Baso # (Auto) Reticulocyte # Immature Gran # (Auto) Absolute Nucleated RBC Nucleated RBC % (auto) Blood Smear Review Dohle Bodies Polychromasia Basophilic Stippling Ovalocytes Echinocytes ESR PT INR APTT PTT Ratio ABG pH 7.37 ABG pCO2 35 ABG pO2 55 L ABG HCO3 20 ABG O2 Saturation 85.5 L ABG Base Excess -4.4 Silverio Test Pos Oxygen Given 3L Sodium Potassium Chloride Carbon Dioxide Anion Gap BUN Creatinine Est Cr Clr Drug Dosing Est GFR ( Amer) Est GFR (Non-Af Amer) BUN/Creatinine Ratio Glucose POC Glucose Estimat Average Glucose Hemoglobin A1c Lactate Calcium Phosphorus Magnesium Iron TIBC Unsaturated IBC Transferrin % Sat Ferritin Total Bilirubin AST ALT Alkaline Phosphatase Ammonia Lactate Dehydrogenase Total Creatine Kinase Troponin I High Sens C-Reactive Protein B-Natriuretic Peptide Total Protein Albumin Globulin Albumin/Globulin Ratio Lipase Vitamin B12 Folate Procalcitonin Urine Color Urine Appearance Urine pH Ur Specific [place] Urine Protein Urine Glucose (UA) Urine Ketones Urine Blood Urine Nitrite Urine Bilirubin Urine Urobilinogen Ur Leukocyte Esterase Urine WBC (Auto) Urine RBC (Auto) U Hyaline Cast (Auto) U Epithel Cells (Auto) Urine Bacteria (Auto) Ur Random Creatinine U Random Total Protein Protein/Creatinin Ratio Urine Opiates Screen Ur Methadone, Qual Acetaminophen Urine Barbiturates Ur Phencyclidine (PCP) U Amphetamin/Meth Scrn MDMA (Ecstasy) Screen U Benzodiazepines Scrn Ur Cocaine Metabolite U Marijuana (THC) Screen Ethyl Alcohol mg/dL < 10.0 Adenovirus (PCR) Anaplasma Smear Babesia Smear B. pertussis DNA (PCR) B.parapertussis DNA PCR Lyme Disease IgG Ab Lyme Disease IgM Ab C. pneumoniae DNA (PCR) Coronavirus OC43 (PCR) Coronavirus HKU1 (PCR) Coronavirus 229E (PCR) SARS-CoV-2 (PCR) Coronavirus NL63 (PCR) Human Metapneumovir PCR Influenza Type A (PCR) Influenza Type B (PCR) M. pneumoniae (PCR) Parainfluenza 1 (PCR) Parainfluenza 2 (PCR) Parainfluenza 3 (PCR) Parainfluenza 4 (PCR) RSV (PCR) Entero/Rhino (PCR) Blood Type Blood Type Recheck AB Negative Antibody Screen Crossmatch 04/06/23 04/06/23 04/06/23 15:17 17:44 17:50 WBC RBC Hgb Hct MCV MCH MCHC RDW Std Deviation RDW Coeff of Iman Plt Count MPV Immature Gran % (Auto) Neut % (Auto) Lymph % (Auto) Sebastian % (Auto) Eos % (Auto) Baso % (Auto) Reticulocyte % (Auto) Neut # (Auto) Lymph # (Auto) Sebastian # (Auto) Eos # (Auto) Baso # (Auto) Reticulocyte # Immature Gran # (Auto) Absolute Nucleated RBC Nucleated RBC % (auto) Blood Smear Review Dohle Bodies Polychromasia Basophilic Stippling Ovalocytes Echinocytes ESR PT INR APTT PTT Ratio ABG pH ABG pCO2 ABG pO2 ABG HCO3 ABG O2 Saturation ABG Base Excess Silverio Test Oxygen Given Sodium 145 Potassium 4.6 Chloride 115 H Carbon Dioxide 23 Anion Gap 7 BUN 63 H Creatinine 2.29 H Est Cr Clr Drug Dosing 26.3 Est GFR ( Amer) 28.5 Est GFR (Non-Af Amer) 24.6 BUN/Creatinine Ratio 27.5 H Glucose 76 POC Glucose 27 L* Estimat Average Glucose Hemoglobin A1c Lactate Calcium 9.7 Phosphorus Magnesium Iron TIBC Unsaturated IBC Transferrin % Sat Ferritin Total Bilirubin 3.7 H AST 104 H ALT 100 H Alkaline Phosphatase 229 H Ammonia Lactate Dehydrogenase Total Creatine Kinase Troponin I High Sens 143.5 H* C-Reactive Protein B-Natriuretic Peptide Total Protein 5.6 L Albumin 3.3 L Globulin 2.3 L Albumin/Globulin Ratio 1.4 Lipase Vitamin B12 Folate Procalcitonin Urine Color Urine Appearance Urine pH Ur Specific [place] Urine Protein Urine Glucose (UA) Urine Ketones Urine Blood Urine Nitrite Urine Bilirubin Urine Urobilinogen Ur Leukocyte Esterase Urine WBC (Auto) Urine RBC (Auto) U Hyaline Cast (Auto) U Epithel Cells (Auto) Urine Bacteria (Auto) Ur Random Creatinine U Random Total Protein Protein/Creatinin Ratio Urine Opiates Screen Ur Methadone, Qual Acetaminophen Urine Barbiturates Ur Phencyclidine (PCP) U Amphetamin/Meth Scrn MDMA (Ecstasy) Screen U Benzodiazepines Scrn Ur Cocaine Metabolite U Marijuana (THC) Screen Ethyl Alcohol mg/dL Adenovirus (PCR) Not Detected Anaplasma Smear Babesia Smear B. pertussis DNA (PCR) Not Detected B.parapertussis DNA PCR Not Detected Lyme Disease IgG Ab Lyme Disease IgM Ab C. pneumoniae DNA (PCR) Not Detected Coronavirus OC43 (PCR) Not Detected Coronavirus HKU1 (PCR) Not Detected Coronavirus 229E (PCR) Not Detected SARS-CoV-2 (PCR) Not Detected Coronavirus NL63 (PCR) Not Detected Human Metapneumovir PCR Not Detected Influenza Type A (PCR) Not Detected Influenza Type B (PCR) Not Detected M. pneumoniae (PCR) Not Detected Parainfluenza 1 (PCR) Not Detected Parainfluenza 2 (PCR) Not Detected Parainfluenza 3 (PCR) Not Detected Parainfluenza 4 (PCR) Not Detected RSV (PCR) Not Detected Entero/Rhino (PCR) Not Detected Blood Type Blood Type Recheck Antibody Screen Crossmatch 04/06/23 04/06/23 04/06/23 17:50 17:50 17:50 WBC 3.66 L RBC 2.13 L Hgb 7.7 L Hct 22.5 L MCV 105.6 H MCH 36.2 H MCHC 34.2 RDW Std Deviation 64.1 H RDW Coeff of Iman 16.7 H Plt Count 116 L MPV 11.0 Immature Gran % (Auto) Neut % (Auto) Lymph % (Auto) Sebastian % (Auto) Eos % (Auto) Baso % (Auto) Reticulocyte % (Auto) Neut # (Auto) Lymph # (Auto) Sebastian # (Auto) Eos # (Auto) Baso # (Auto) Reticulocyte # Immature Gran # (Auto) Absolute Nucleated RBC 0.02 Nucleated RBC % (auto) 0.5 Blood Smear Review Dohle Bodies Polychromasia Basophilic Stippling Ovalocytes Echinocytes ESR PT INR APTT PTT Ratio ABG pH ABG pCO2 ABG pO2 ABG HCO3 ABG O2 Saturation ABG Base Excess Silverio Test Oxygen Given Sodium Potassium Chloride Carbon Dioxide Anion Gap BUN Creatinine Est Cr Clr Drug Dosing Est GFR ( Amer) Est GFR (Non-Af Amer) BUN/Creatinine Ratio Glucose POC Glucose 78 Estimat Average Glucose Hemoglobin A1c Lactate Calcium Phosphorus Magnesium Iron TIBC Unsaturated IBC Transferrin % Sat Ferritin Total Bilirubin AST ALT Alkaline Phosphatase Ammonia Lactate Dehydrogenase Total Creatine Kinase Troponin I High Sens C-Reactive Protein B-Natriuretic Peptide Total Protein Albumin Globulin Albumin/Globulin Ratio Lipase Vitamin B12 Folate Procalcitonin Urine Color Urine Appearance Urine pH Ur Specific [place] Urine Protein Urine Glucose (UA) Urine Ketones Urine Blood Urine Nitrite Urine Bilirubin Urine Urobilinogen Ur Leukocyte Esterase Urine WBC (Auto) Urine RBC (Auto) U Hyaline Cast (Auto) U Epithel Cells (Auto) Urine Bacteria (Auto) Ur Random Creatinine U Random Total Protein Protein/Creatinin Ratio Urine Opiates Screen Ur Methadone, Qual Acetaminophen < 3 L Urine Barbiturates Ur Phencyclidine (PCP) U Amphetamin/Meth Scrn MDMA (Ecstasy) Screen U Benzodiazepines Scrn Ur Cocaine Metabolite U Marijuana (THC) Screen Ethyl Alcohol mg/dL Adenovirus (PCR) Anaplasma Smear Babesia Smear B. pertussis DNA (PCR) B.parapertussis DNA PCR Lyme Disease IgG Ab Lyme Disease IgM Ab C. pneumoniae DNA (PCR) Coronavirus OC43 (PCR) Coronavirus HKU1 (PCR) Coronavirus 229E (PCR) SARS-CoV-2 (PCR) Coronavirus NL63 (PCR) Human Metapneumovir PCR Influenza Type A (PCR) Influenza Type B (PCR) M. pneumoniae (PCR) Parainfluenza 1 (PCR) Parainfluenza 2 (PCR) Parainfluenza 3 (PCR) Parainfluenza 4 (PCR) RSV (PCR) Entero/Rhino (PCR) Blood Type Blood Type Recheck Antibody Screen Crossmatch 04/06/23 04/06/23 04/07/23 21:05 23:11 00:43 WBC RBC Hgb Hct MCV MCH MCHC RDW Std Deviation RDW Coeff of Imna Plt Count MPV Immature Gran % (Auto) Neut % (Auto) Lymph % (Auto) Sebastian % (Auto) Eos % (Auto) Baso % (Auto) Reticulocyte % (Auto) Neut # (Auto) Lymph # (Auto) Sebastian # (Auto) Eos # (Auto) Baso # (Auto) Reticulocyte # Immature Gran # (Auto) Absolute Nucleated RBC Nucleated RBC % (auto) Blood Smear Review Dohle Bodies Polychromasia Basophilic Stippling Ovalocytes Echinocytes ESR PT INR APTT PTT Ratio ABG pH ABG pCO2 ABG pO2 ABG HCO3 ABG O2 Saturation ABG Base Excess Sliverio Test Oxygen Given Sodium Potassium Chloride Carbon Dioxide Anion Gap BUN Creatinine Est Cr Clr Drug Dosing Est GFR ( Amer) Est GFR (Non-Af Amer) BUN/Creatinine Ratio Glucose POC Glucose 73 77 Estimat Average Glucose Hemoglobin A1c Lactate Calcium Phosphorus Magnesium Iron TIBC Unsaturated IBC Transferrin % Sat Ferritin Total Bilirubin AST ALT Alkaline Phosphatase Ammonia Lactate Dehydrogenase Total Creatine Kinase Troponin I High Sens 131.1 H* C-Reactive Protein B-Natriuretic Peptide Total Protein Albumin Globulin Albumin/Globulin Ratio Lipase Vitamin B12 Folate Procalcitonin Urine Color Urine Appearance Urine pH Ur Specific [place] Urine Protein Urine Glucose (UA) Urine Ketones Urine Blood Urine Nitrite Urine Bilirubin Urine Urobilinogen Ur Leukocyte Esterase Urine WBC (Auto) Urine RBC (Auto) U Hyaline Cast (Auto) U Epithel Cells (Auto) Urine Bacteria (Auto) Ur Random Creatinine U Random Total Protein Protein/Creatinin Ratio Urine Opiates Screen Ur Methadone, Qual Acetaminophen Urine Barbiturates Ur Phencyclidine (PCP) U Amphetamin/Meth Scrn MDMA (Ecstasy) Screen U Benzodiazepines Scrn Ur Cocaine Metabolite U Marijuana (THC) Screen Ethyl Alcohol mg/dL Adenovirus (PCR) Anaplasma Smear Babesia Smear B. pertussis DNA (PCR) B.parapertussis DNA PCR Lyme Disease IgG Ab Lyme Disease IgM Ab C. pneumoniae DNA (PCR) Coronavirus OC43 (PCR) Coronavirus HKU1 (PCR) Coronavirus 229E (PCR) SARS-CoV-2 (PCR) Coronavirus NL63 (PCR) Human Metapneumovir PCR Influenza Type A (PCR) Influenza Type B (PCR) M. pneumoniae (PCR) Parainfluenza 1 (PCR) Parainfluenza 2 (PCR) Parainfluenza 3 (PCR) Parainfluenza 4 (PCR) RSV (PCR) Entero/Rhino (PCR) Blood Type Blood Type Recheck Antibody Screen Crossmatch 04/07/23 04/07/23 04/07/23 00:43 01:04 03:16 WBC 3.10 L RBC 1.96 L Hgb 7.0 L Hct 21.5 L MCV 109.7 H MCH 35.7 H MCHC 32.6 RDW Std Deviation 67.4 H RDW Coeff of Iman 16.9 H Plt Count 97 L MPV 11.5 Immature Gran % (Auto) Neut % (Auto) Lymph % (Auto) Sebastian % (Auto) Eos % (Auto) Baso % (Auto) Reticulocyte % (Auto) Neut # (Auto) Lymph # (Auto) Sebastian # (Auto) Eos # (Auto) Baso # (Auto) Reticulocyte # Immature Gran # (Auto) Absolute Nucleated RBC Nucleated RBC % (auto) Blood Smear Review Dohle Bodies Polychromasia Basophilic Stippling Ovalocytes Echinocytes ESR PT INR APTT PTT Ratio ABG pH ABG pCO2 ABG pO2 ABG HCO3 ABG O2 Saturation ABG Base Excess Silverio Test Oxygen Given Sodium Potassium Chloride Carbon Dioxide Anion Gap BUN Creatinine Est Cr Clr Drug Dosing Est GFR ( Amer) Est GFR (Non-Af Amer) BUN/Creatinine Ratio Glucose POC Glucose 76 74 Estimat Average Glucose Hemoglobin A1c Lactate Calcium Phosphorus Magnesium Iron TIBC Unsaturated IBC Transferrin % Sat Ferritin Total Bilirubin AST ALT Alkaline Phosphatase Ammonia Lactate Dehydrogenase Total Creatine Kinase Troponin I High Sens C-Reactive Protein B-Natriuretic Peptide Total Protein Albumin Globulin Albumin/Globulin Ratio Lipase Vitamin B12 Folate Procalcitonin Urine Color Urine Appearance Urine pH Ur Specific [place] Urine Protein Urine Glucose (UA) Urine Ketones Urine Blood Urine Nitrite Urine Bilirubin Urine Urobilinogen Ur Leukocyte Esterase Urine WBC (Auto) Urine RBC (Auto) U Hyaline Cast (Auto) U Epithel Cells (Auto) Urine Bacteria (Auto) Ur Random Creatinine U Random Total Protein Protein/Creatinin Ratio Urine Opiates Screen Ur Methadone, Qual Acetaminophen Urine Barbiturates Ur Phencyclidine (PCP) U Amphetamin/Meth Scrn MDMA (Ecstasy) Screen U Benzodiazepines Scrn Ur Cocaine Metabolite U Marijuana (THC) Screen Ethyl Alcohol mg/dL Adenovirus (PCR) Anaplasma Smear Babesia Smear B. pertussis DNA (PCR) B.parapertussis DNA PCR Lyme Disease IgG Ab Lyme Disease IgM Ab C. pneumoniae DNA (PCR) Coronavirus OC43 (PCR) Coronavirus HKU1 (PCR) Coronavirus 229E (PCR) SARS-CoV-2 (PCR) Coronavirus NL63 (PCR) Human Metapneumovir PCR Influenza Type A (PCR) Influenza Type B (PCR) M. pneumoniae (PCR) Parainfluenza 1 (PCR) Parainfluenza 2 (PCR) Parainfluenza 3 (PCR) Parainfluenza 4 (PCR) RSV (PCR) Entero/Rhino (PCR) Blood Type Blood Type Recheck Antibody Screen Crossmatch 04/07/23 04/07/23 04/07/23 05:12 06:12 06:12 WBC 3.44 L RBC 2.00 L Hgb 7.3 L Hct 21.1 L MCV 105.5 H MCH 36.5 H MCHC 34.6 RDW Std Deviation 63.4 H RDW Coeff of Iman 16.4 H Plt Count 111 L MPV 11.4 Immature Gran % (Auto) 0.0 Neut % (Auto) 91.0 Lymph % (Auto) 6.4 Sebastian % (Auto) 2.3 Eos % (Auto) 0.3 Baso % (Auto) 0.0 Reticulocyte % (Auto) Neut # (Auto) 3.13 Lymph # (Auto) 0.22 L Sebastian # (Auto) 0.08 L Eos # (Auto) 0.01 Baso # (Auto) 0.00 Reticulocyte # Immature Gran # (Auto) 0.00 L Absolute Nucleated RBC Nucleated RBC % (auto) Blood Smear Review Dohle Bodies Polychromasia 1+ Basophilic Stippling 1+ Ovalocytes 1+ Echinocytes 1+ ESR PT INR APTT PTT Ratio ABG pH ABG pCO2 ABG pO2 ABG HCO3 ABG O2 Saturation ABG Base Excess Silverio Test Oxygen Given Sodium 145 Potassium 4.1 Chloride 113 H Carbon Dioxide 23 Anion Gap 9 BUN 65 H Creatinine 2.34 H Est Cr Clr Drug Dosing 25.2 Est GFR ( Amer) 27.7 Est GFR (Non-Af Amer) 23.9 BUN/Creatinine Ratio 27.8 H Glucose 67 L POC Glucose 81 Estimat Average Glucose Hemoglobin A1c Lactate Calcium 9.3 Phosphorus Magnesium Iron TIBC Unsaturated IBC Transferrin % Sat Ferritin Total Bilirubin 3.1 H AST 93 H ALT 88 H Alkaline Phosphatase 179 H Ammonia Lactate Dehydrogenase Total Creatine Kinase 1038 H Troponin I High Sens C-Reactive Protein B-Natriuretic Peptide Total Protein 5.1 L Albumin 3.1 L Globulin 2.0 L Albumin/Globulin Ratio 1.6 Lipase Vitamin B12 Folate Procalcitonin Urine Color Urine Appearance Urine pH Ur Specific [place] Urine Protein Urine Glucose (UA) Urine Ketones Urine Blood Urine Nitrite Urine Bilirubin Urine Urobilinogen Ur Leukocyte Esterase Urine WBC (Auto) Urine RBC (Auto) U Hyaline Cast (Auto) U Epithel Cells (Auto) Urine Bacteria (Auto) Ur Random Creatinine U Random Total Protein Protein/Creatinin Ratio Urine Opiates Screen Ur Methadone, Qual Acetaminophen Urine Barbiturates Ur Phencyclidine (PCP) U Amphetamin/Meth Scrn MDMA (Ecstasy) Screen U Benzodiazepines Scrn Ur Cocaine Metabolite U Marijuana (THC) Screen Ethyl Alcohol mg/dL Adenovirus (PCR) Anaplasma Smear Babesia Smear B. pertussis DNA (PCR) B.parapertussis DNA PCR Lyme Disease IgG Ab Lyme Disease IgM Ab C. pneumoniae DNA (PCR) Coronavirus OC43 (PCR) Coronavirus HKU1 (PCR) Coronavirus 229E (PCR) SARS-CoV-2 (PCR) Coronavirus NL63 (PCR) Human Metapneumovir PCR Influenza Type A (PCR) Influenza Type B (PCR) M. pneumoniae (PCR) Parainfluenza 1 (PCR) Parainfluenza 2 (PCR) Parainfluenza 3 (PCR) Parainfluenza 4 (PCR) RSV (PCR) Entero/Rhino (PCR) Blood Type Blood Type Recheck Antibody Screen Crossmatch 04/07/23 04/07/23 04/07/23 06:12 06:12 06:12 WBC RBC Hgb Hct MCV MCH MCHC RDW Std Deviation RDW Coeff of Iman Plt Count MPV Immature Gran % (Auto) Neut % (Auto) Lymph % (Auto) Sebastian % (Auto) Eos % (Auto) Baso % (Auto) Reticulocyte % (Auto) Neut # (Auto) Lymph # (Auto) Sebastian # (Auto) Eos # (Auto) Baso # (Auto) Reticulocyte # Immature Gran # (Auto) Absolute Nucleated RBC Nucleated RBC % (auto) Blood Smear Review Dohle Bodies Polychromasia Basophilic Stippling Ovalocytes Echinocytes ESR PT INR APTT PTT Ratio ABG pH 7.39 ABG pCO2 38 ABG pO2 146 H ABG HCO3 23 ABG O2 Saturation 98.8 H ABG Base Excess -1.7 Silverio Test Pos Oxygen Given 3L Sodium Potassium Chloride Carbon Dioxide Anion Gap BUN Creatinine Est Cr Clr Drug Dosing Est GFR ( Amer) Est GFR (Non-Af Amer) BUN/Creatinine Ratio Glucose POC Glucose Estimat Average Glucose 137 Hemoglobin A1c 6.4 H Lactate Calcium Phosphorus Magnesium Iron TIBC Unsaturated IBC Transferrin % Sat Ferritin Total Bilirubin AST ALT Alkaline Phosphatase Ammonia Lactate Dehydrogenase Total Creatine Kinase Troponin I High Sens 141.3 H* C-Reactive Protein B-Natriuretic Peptide Total Protein Albumin Globulin Albumin/Globulin Ratio Lipase Vitamin B12 Folate Procalcitonin Urine Color Urine Appearance Urine pH Ur Specific [place] Urine Protein Urine Glucose (UA) Urine Ketones Urine Blood Urine Nitrite Urine Bilirubin Urine Urobilinogen Ur Leukocyte Esterase Urine WBC (Auto) Urine RBC (Auto) U Hyaline Cast (Auto) U Epithel Cells (Auto) Urine Bacteria (Auto) Ur Random Creatinine U Random Total Protein Protein/Creatinin Ratio Urine Opiates Screen Ur Methadone, Qual Acetaminophen Urine Barbiturates Ur Phencyclidine (PCP) U Amphetamin/Meth Scrn MDMA (Ecstasy) Screen U Benzodiazepines Scrn Ur Cocaine Metabolite U Marijuana (THC) Screen Ethyl Alcohol mg/dL Adenovirus (PCR) Anaplasma Smear Babesia Smear B. pertussis DNA (PCR) B.parapertussis DNA PCR Lyme Disease IgG Ab Lyme Disease IgM Ab C. pneumoniae DNA (PCR) Coronavirus OC43 (PCR) Coronavirus HKU1 (PCR) Coronavirus 229E (PCR) SARS-CoV-2 (PCR) Coronavirus NL63 (PCR) Human Metapneumovir PCR Influenza Type A (PCR) Influenza Type B (PCR) M. pneumoniae (PCR) Parainfluenza 1 (PCR) Parainfluenza 2 (PCR) Parainfluenza 3 (PCR) Parainfluenza 4 (PCR) RSV (PCR) Entero/Rhino (PCR) Blood Type Blood Type Recheck Antibody Screen Crossmatch
[2023-04-07] MEDS: FUROSEMIDE 40 MG/4 ML VIAL IV SCH ×2 (09:55→20:33)
[2023-04-07] MEDS: PANTOprazole 40 MG in SYRINGE 0 ML IV SCH ×2 (09:56→20:33)
--- NOTE | 2023-04-07 10:04 | Nuclear Medicine Report ---
NM hepatobiliary CLINICAL HISTORY: 88 years-old Male with Acute estevan, RUQ pain, elevated LFTs, bacteremia. Acute rig ht upper quadrant abdominal pain TECHNIQUE: Sequential anterior abdominal images were obtained through 90 minutes following the intra venous administration of 5.5 mCi of technetium-99m Choletec. IV morphine also administered. COMPARISON: CT 04/06/2023 FINDINGS: There is prompt, uniform accumulation of the tracer by the liver. There is normal filling of the int rahepatic ducts, common bile duct and normal excretion of the tracer into the duodenum. The gallblad dayna is not seen at the 60 minute interval. IV morphine was then administered to the patient and a 30 minute delayed anterior image was obtained. The gallbladder is also not visualized on the delayed kehinde ge. IMPRESSION: 1. Nonvisualization of the gallbladder compatible with cystic duct obstruction. 2. No evidence of common bile duct obstruction. ACT 112: Negative or not required by law. The above report was generated using voice recognition software. It may contain grammatical, syntax o r spelling errors. Electronically signed by: Juice Lowry M.D. 04/07/2023 10:03 AM
[2023-04-07] MEDS ORDERED: METOPROLOL TARTRATE 1 MG/ML VIAL IV STA (11:21)
[2023-04-07] MEDS ORDERED: METOPROLOL TARTRATE 25 MG TAB PO SCH (11:30)
[2023-04-07 12:20] LABS: Hematocrit (blood only) 22.9 % (42.0-52.0); Hemoglobin 7.9 g/dl (14.0-18.0); Mean Corpuscular Hemoglobin 35.9 pg (25.0-34.0); Mean Corpuscular Hgb Conc 34.5 g/dL (32.0-36.0); Mean Corpuscular Volume 104.1 fL (80.0-100.0); Mean Platelet Volume 10.8 fL (9.4-12.4); Platelet Count 122 K/uL (130-400); RDW Coefficient of Variation 16.5 % (11.5-14.5); RDW Standard Deviation 63.3 fL (36.4-46.3); White Blood Count 3.51 K/ul (4.8-10.8)
[2023-04-07] MEDS ORDERED: STAT IV Infusion **Titration per Protocol STA (15:15)
[2023-04-07] MEDS ORDERED: dilTIAZem HCl 5 MG/ML 5 ML VIAL IV STA (15:15)
[2023-04-07] MEDS ORDERED: dilTIAZem HCL 125 MG in DEXTROSE 5% 100 ML IV SCH (15:15)
[2023-04-07] MEDS: MoRPHine SULFATE 2 MG/ML CARP IV PRN ×2 (16:11→22:31)
--- NOTE | 2023-04-07 16:53 | Hospitalist Progress Note ---
Date of Service April 07, 2023 Assessment & Plan (1) Acute metabolic encephalopathy: Plan: Slightly improved today per daughter, but still mostly obtunded. Maintaining airway. Daughter says that there has been a steady decline in his cognitive status over the past few years, quickly declining over the past 2 months and a steep decline over the past 1 week. Unclear etiology ID consulted (2) Acute respiratory failure with hypoxia: Plan: Improved with diuresis Most likely secondary to oversedation, pulmonary edema, acute diastolic congestive heart failure Echocardiogram showed normal EF and moderate LVH (3) Elevated LFTs: Plan: Main presenting symptom of abdominal pain, vomiting Nothing seen on CT A/P at [place] except possible gallstone Ultrasound right upper quadrant showed possible cholelithiasis and mild cholecystitis HIDA scan showed nonvisualization of the gallbladder compatible with cystic duct obstruction General surgery on board. I have been informed that general surgery is discussing possible percutaneous cholecystostomy tube with IR possibly tomorrow. Continue n.p.o. for potential IR procedure Blood culture growing gram-negative lashay lactose visual merchandising specialist. Awaiting further speciation and sensitivities ID consulted Continue Zosyn IV ?acute cholecystitis ?ehrlichiosis (4) Pulmonary edema: Plan: With bilateral pleural effusions. BNP elevated. Hypervolemic on exam. ?chronic due to CKD vs. acute Troponin I appears stable - not consistent with DC, suspect demand-ischemia. TTE showed no depressed EF Most likely secondary to acute diastolic congestive heart failure Continue diuresis Monitor renal function while on diuresis (5) Ehrlichiosis: Plan: Possible diagnosis - single inclusion body on one monocyte present on smear - concerning for ehrlichiosis. Decreased WBC (although this is similar to prior labs last year), elevated LFTs, mild thrombocytopenia Continue doxycycline 100mg IV BID ID on board (6) Iron deficiency anemia: Plan: Concern for acute vs. chronic GI bleed. Appears relatively stable since [place] ER however. History of gastric ulcers Pantoprazole 80mg IV now then 40mg IV BID Iron sats 5% Type and cross sent to hold 2 units and blood consent signed Aim Hgb > 7 FOB positive Avoid heparin drip now that the patient is in A-fib/flutter LDH also elevated therefore possibly some component of hemolytic anemia ?related to ehrlichiosis. (7) Abnormal urine sediment: Plan: Long string sediment in urine Per lab does not appear consistent with clot or parasite Surgical pathology on sample ordered (8) Hypertension: Plan: Hold all his anti-hypertensives at this time due to low BP. Continue Lasix IV twice daily (9) Hematuria: Plan: Unclear cause of hematuria at this time as nothing seen on CT A/P at [facility] ?traumatic catheterization Hold aspirin - unclear why he takes this, no Hx DC or stroke (10) Chronic kidney disease, stage 4 (severe): Plan: Cr at baseline. UA with protein and blood (11) BPH (benign prostatic hyperplasia): Plan: Hold doxazosin, mulligan catheter in place (12) T2DM (type 2 diabetes mellitus): Plan: HbA1C 7.5 in April 2022 Hold all diabetic medication at this time. Restart on basal bolus insulin as needed once glucose starts to improve. BSG q2h until stable with hypoglycemia protocol. Avoid D5W due to hypervolemia. (13) Hypoglycemia: (14) Bilateral pleural effusion: (15) Rapid atrial fibrillation: Plan: Heart rate in the 130s Part of it could be pain related Decided to treat pain with IV morphine Started Cardizem push followed by drip No anticoagulation in the setting of recent hematuria, positive stool guaiac Plan VTE Prophyalxis - chemical deferred given possibility of acute GI bleed Diet - NPO Spoke to daughter at the bedside. Spoke to nurse several times. Admission and Anticipated Discharge Date Admission Date: April 06, 2023 Subjective Patient remains obtunded. However, per daughter, he is able to interact with them a little bit more. He is able to say a few words compared with no words yesterday. Review of Systems Review of Systems: Unobtainable due to reduced consciousness Physical Exam Physical Exam: General: Obtunded Heart: S1, S2/fast irregular, no murmur rubs or gallops Lungs: Clear to auscultation bilaterally. Normal effort Abdomen: Soft/nondistended. Mild tenderness to palpation. No rebound or rigidity noted. No hepatosplenomegaly Extremities: No clubbing/cyanosis. No edema Behavior: Unable to assess Results & Data Results & Data Vital Signs (Past 12 Hours) Vital Signs Temp Pulse Pulse Resp BP BP Pulse Ox 04/07/23 16:17 37.3 C 97 04/07/23 15:49 139 H 115/79 04/07/23 07:00 87 04/07/23 11:43 117 H 112/58 L 04/07/23 07:20 04/07/23 07:05 37.2 C 92 H 16 115/66 97 O2 Del Method O2 Flow Rate 04/07/23 16:17 Nasal Cannula 2 04/07/23 15:49 04/07/23 07:00 04/07/23 11:43 04/07/23 07:20 Nasal Cannula 2 04/07/23 07:05 Nasal Cannula 3 Laboratory Results Abnormal lab results 04/06/23 04/06/23 04/06/23 Range/Units 12:43 17:44 17:50 WBC (4.8-10.8) K/ul RBC (4.70-6.10) M/uL Hgb (14.0-18.0) g/dl Hct (42.0-52.0) % MCV (80.0-100.0) fL MCH (25.0-34.0) pg RDW Std Deviation (36.4-46.3) fL RDW Coeff of Iman (11.5-14.5) % Plt Count (130-400) K/uL Lymph # (Auto) (1.2-3.4) K/uL Duc[place]ne # (Auto) (0.11-0.59) K/uL Immature Gran # (Auto) (0.01-0.20) K/uL ABG pO2 (80-95) mmHg ABG O2 Saturation (90-95) % Chloride 115 H (98-107) mmol/L BUN 63 H (6-23) mg/dl Creatinine 2.29 H (0.6-1.4) mg/dl BUN/Creatinine Ratio 27.5 H (10-20) Glucose (70-99(Fasting)) mg/dl POC Glucose 27 L* (70-99) mg/dl Hemoglobin A1c (4.5-5.6) % Total Bilirubin 3.7 H (0.2-1.0) mg/dl AST 104 H (13-39) U/L ALT 100 H (7-52) U/L Alkaline Phosphatase 229 H (34-104) U/L Total Creatine Kinase (30-223) U/L Troponin I High Sens 143.5 H* (0-20) pg/ml Total Protein 5.6 L (6.0-8.3) gm/dl Albumin 3.3 L (3.4-5.0) gm/dl Globulin 2.3 L (2.5-4.0) gm/dl U Random Total Protein 61.7 H (0-11.9) mg/dl Protein/Creatinin Ratio 3.3 H (0-0.2) Acetaminophen (10-30) ug/ml 04/06/23 04/06/23 04/07/23 Range/Units 17:50 17:50 00:43 WBC 3.66 L (4.8-10.8) K/ul RBC 2.13 L (4.70-6.10) M/uL Hgb 7.7 L (14.0-18.0) g/dl Hct 22.5 L (42.0-52.0) % MCV 105.6 H (80.0-100.0) fL MCH 36.2 H (25.0-34.0) pg RDW Std Deviation 64.1 H (36.4-46.3) fL RDW Coeff of Iman 16.7 H (11.5-14.5) % Plt Count 116 L (130-400) K/uL Lymph # (Auto) (1.2-3.4) K/uL Duc[place]ne # (Auto) (0.11-0.59) K/uL Immature Gran # (Auto) (0.01-0.20) K/uL ABG pO2 (80-95) mmHg ABG O2 Saturation (90-95) % Chloride (98-107) mmol/L BUN (6-23) mg/dl Creatinine (0.6-1.4) mg/dl BUN/Creatinine Ratio (10-20) Glucose (70-99(Fasting)) mg/dl POC Glucose (70-99) mg/dl Hemoglobin A1c (4.5-5.6) % Total Bilirubin (0.2-1.0) mg/dl AST (13-39) U/L ALT (7-52) U/L Alkaline Phosphatase (34-104) U/L Total Creatine Kinase (30-223) U/L Troponin I High Sens 131.1 H* (0-20) pg/ml Total Protein (6.0-8.3) gm/dl Albumin (3.4-5.0) gm/dl Globulin (2.5-4.0) gm/dl U Random Total Protein (0-11.9) mg/dl Protein/Creatinin Ratio (0-0.2) Acetaminophen < 3 L (10-30) ug/ml 04/07/23 04/07/23 04/07/23 Range/Units 00:43 06:12 06:12 WBC 3.10 L 3.44 L (4.8-10.8) K/ul RBC 1.96 L 2.00 L (4.70-6.10) M/uL Hgb 7.0 L 7.3 L (14.0-18.0) g/dl Hct 21.5 L 21.1 L (42.0-52.0) % MCV 109.7 H 105.5 H (80.0-100.0) fL MCH 35.7 H 36.5 H (25.0-34.0) pg RDW Std Deviation 67.4 H 63.4 H (36.4-46.3) fL RDW Coeff of Iman 16.9 H 16.4 H (11.5-14.5) % Plt Count 97 L 111 L (130-400) K/uL Lymph # (Auto) 0.22 L (1.2-3.4) K/uL Duc[place]ne # (Auto) 0.08 L (0.11-0.59) K/uL Immature Gran # (Auto) 0.00 L (0.01-0.20) K/uL ABG pO2 (80-95) mmHg ABG O2 Saturation (90-95) % Chloride 113 H (98-107) mmol/L BUN 65 H (6-23) mg/dl Creatinine 2.34 H (0.6-1.4) mg/dl BUN/Creatinine Ratio 27.8 H (10-20) Glucose 67 L (70-99(Fasting)) mg/dl POC Glucose (70-99) mg/dl Hemoglobin A1c (4.5-5.6) % Total Bilirubin 3.1 H (0.2-1.0) mg/dl AST 93 H (13-39) U/L ALT 88 H (7-52) U/L Alkaline Phosphatase 179 H (34-104) U/L Total Creatine Kinase 1038 H (30-223) U/L Troponin I High Sens (0-20) pg/ml Total Protein 5.1 L (6.0-8.3) gm/dl Albumin 3.1 L (3.4-5.0) gm/dl Globulin 2.0 L (2.5-4.0) gm/dl U Random Total Protein (0-11.9) mg/dl Protein/Creatinin Ratio (0-0.2) Acetaminophen (10-30) ug/ml 04/07/23 04/07/23 04/07/23 Range/Units 06:12 06:12 06:12 WBC (4.8-10.8) K/ul RBC (4.70-6.10) M/uL Hgb (14.0-18.0) g/dl Hct (42.0-52.0) % MCV (80.0-100.0) fL MCH (25.0-34.0) pg RDW Std Deviation (36.4-46.3) fL RDW Coeff of Iman (11.5-14.5) % Plt Count (130-400) K/uL Lymph # (Auto) (1.2-3.4) K/uL Duc[place]ne # (Auto) (0.11-0.59) K/uL Immature Gran # (Auto) (0.01-0.20) K/uL ABG pO2 146 H (80-95) mmHg ABG O2 Saturation 98.8 H (90-95) % Chloride (98-107) mmol/L BUN (6-23) mg/dl Creatinine (0.6-1.4) mg/dl BUN/Creatinine Ratio (10-20) Glucose (70-99(Fasting)) mg/dl POC Glucose (70-99) mg/dl Hemoglobin A1c 6.4 H (4.5-5.6) % Total Bilirubin (0.2-1.0) mg/dl AST (13-39) U/L ALT (7-52) U/L Alkaline Phosphatase (34-104) U/L Total Creatine Kinase (30-223) U/L Troponin I High Sens 141.3 H* (0-20) pg/ml Total Protein (6.0-8.3) gm/dl Albumin (3.4-5.0) gm/dl Globulin (2.5-4.0) gm/dl U Random Total Protein (0-11.9) mg/dl Protein/Creatinin Ratio (0-0.2) Acetaminophen (10-30) ug/ml 04/07/23 04/07/23 Range/Units 11:49 11:49 WBC 3.51 L (4.8-10.8) K/ul RBC 2.20 L (4.70-6.10) M/uL Hgb 7.9 L (14.0-18.0) g/dl Hct 22.9 L (42.0-52.0) % MCV 104.1 H (80.0-100.0) fL MCH 35.9 H (25.0-34.0) pg RDW Std Deviation 63.3 H (36.4-46.3) fL RDW Coeff of Iman 16.5 H (11.5-14.5) % Plt Count 122 L (130-400) K/uL Lymph # (Auto) (1.2-3.4) K/uL [place]ne # (Auto) (0.11-0.59) K/uL Immature Gran # (Auto) (0.01-0.20) K/uL ABG pO2 (80-95) mmHg ABG O2 Saturation (90-95) % Chloride (98-107) mmol/L BUN (6-23) mg/dl Creatinine (0.6-1.4) mg/dl BUN/Creatinine Ratio (10-20) Glucose (70-99(Fasting)) mg/dl POC Glucose (70-99) mg/dl Hemoglobin A1c (4.5-5.6) % Total Bilirubin (0.2-1.0) mg/dl AST (13-39) U/L ALT (7-52) U/L Alkaline Phosphatase (34-104) U/L Total Creatine Kinase (30-223) U/L Troponin I High Sens 146.8 H* (0-20) pg/ml Total Protein (6.0-8.3) gm/dl Albumin (3.4-5.0) gm/dl Globulin (2.5-4.0) gm/dl U Random Total Protein (0-11.9) mg/dl Protein/Creatinin Ratio (0-0.2) Acetaminophen (10-30) ug/ml Diagnostic Findings Abdomen/Pelvis CT 04/06/23 19:44 Exam(s): CT ABDOMEN + PELVIS With Contrast IV Amt: 82ml OPTIRAY 320 EXAM: CT Abdomen and Pelvis With Intravenous Contrast CLINICAL HISTORY: Reason for exam: abdominal pain, GNR bacteremia. TECHNIQUE: Axial computed tomography images of the abdomen and pelvis with intravenous contrast. Automated exposure control was utilized for the study. A dose lowering technique was utilized adhering to the principles of ALARA. CONTRAST: Patient received 82ml OPTIRAY 320 of IV contrast COMPARISON: No relevant prior studies available. FINDINGS: Lung bases: Unremarkable. No mass. No consolidation. ABDOMEN: Liver: Unremarkable. No mass. Gallbladder and bile ducts: Unremarkable. No calcified stones. No ductal dilation. Pancreas: Atrophy of the pancreas. No ductal dilation. Spleen: Unremarkable. No splenomegaly. Adrenals: Unremarkable. No mass. Kidneys and ureters: Unremarkable. No hydronephrosis or delayed nephrogram. Stomach and bowel: Cervical ventral wall thickening of the proximal transverse colon, concerning for mild colitis. Diverticulosis, without acute diverticulitis. No small bowel obstruction. No free intraperitoneal air. PELVIS: Appendix: Normal appendix. Bladder: Decompressed urinary bladder which contains a Mulligan catheter and mild wall thickening. Urinalysis recommended to exclude UTI. Reproductive: Enlarged prostate gland measures 6.2 cm. ABDOMEN and PELVIS: Intraperitoneal space: Mild abdominal ascites superior to the pancreas. No free air. Bones/joints: Degenerative changes of the spine. No acute fracture. No dislocation. Soft tissues: Small fat-containing bilateral inguinal hernias. Lipoma in the RIGHT tensor fascia daina measures 9.6 x 4.9 cm. Vasculature: Atherosclerotic changes of the aorta. No abdominal aortic aneurysm. Lymph nodes: Unremarkable. No enlarged lymph nodes. IMPRESSION: 1. Normal appendix. 2. Decompressed urinary bladder which contains a Mulligan catheter and mild wall thickening. Urinalysis recommended to exclude UTI. 3. Cervical ventral wall thickening of the proximal transverse colon, concerning for mild colitis. 4. Diverticulosis, without acute diverticulitis. No small bowel obstruction. No free intraperitoneal air. Electronically signed by: Pete Sutton MD 04/06/23 22:13 PM Hepatobiliary Scan Nuclear Medicine 04/07/23 17:50 NM hepatobiliary CLINICAL HISTORY: 88 years-old Male with Acute estevan, RUQ pain, elevated LFTs, bacteremia. Acute right upper quadrant abdominal pain TECHNIQUE: Sequential anterior abdominal images were obtained through 90 minutes following the intravenous administration of 5.5 mCi of technetium-99m Choletec. IV morphine also administered. COMPARISON: CT 04/06/2023 FINDINGS: There is prompt, uniform accumulation of the tracer by the liver. There is normal filling of the intrahepatic ducts, common bile duct and normal excretion of the tracer into the duodenum. The gallbladder is not seen at the 60 minute interval. IV morphine was then administered to the patient and a 30 minute delayed anterior image was obtained. The gallbladder is also not visualized on the delayed image. IMPRESSION: 1. Nonvisualization of the gallbladder compatible with cystic duct obstruction. 2. No evidence of common bile duct obstruction. ACT 112: Negative or not required by law. The above report was generated using voice recognition software. It may contain grammatical, syntax or spelling errors. Electronically signed by: Juice Lowry M.D. 04/07/2023 10:03 AM PG Care Time/CCT Total # of Minutes Spent Total Time Spent with Patient: Total time spent is greater than 50% in coordination of care (as documented) at patient's floor/unit and/or counseling patient: Coding Level of Care Code 19348 SUB INP/OBS CARE 3/50MIN Diagnoses Acute metabolic encephalopathy G93.41 Acute respiratory failure with hypoxia J96.01 Elevated LFTs R79.89 Pulmonary edema J81.1 Ehrlichiosis A77.40 Iron deficiency anemia D50.9 Abnormal urine sediment R82.90 Hypertension I10 Hematuria R31.9 Chronic kidney disease, stage 4 (severe) N18.4 BPH (benign prostatic hyperplasia) N40.0 T2DM (type 2 diabetes mellitus) E11.9 Hypoglycemia E16.2 Bilateral pleural effusion J90 Rapid atrial fibrillation I48.91
[2023-04-08] MEDS: MoRPHine SULFATE 2 MG/ML CARP IV PRN ×3 (02:31→10:54)
[2023-04-08] MEDS: DOXYCYCLINE HYCLATE 100 MG in DEXTROSE 5% 100 ML IV SCH ×2 (02:31→12:37)
--- NOTE | 2023-04-08 06:12 | Electrocardiogram Report ---
Test Reason : Blood Pressure : / mmHG Vent. Rate : 076 BPM Atrial Rate : 076 BPM P-R Int : 196 ms QRS Dur : 102 ms QT Int : 378 ms P-R-T Axes : 006 109 020 degrees QTc Int : 425 ms Normal sinus rhythm Rightward axis Borderline ECG When compared with ECG of 08-DEC-2012 16:49, QRS axis Shifted right Confirmed by Dean Bran ([id number]) on 04/08/2023 6:12:10 AM Referred By: REFERRED SELF Confirmed By:Dean Bran
[2023-04-08] MEDS: PIPERACILLIN/TAZOBACTAM 4.5 GM in DEXTROSE 5% 100 ML IV SCH ×3 (06:22→23:19)
[2023-04-08 06:34] LABS: BUN Creatinine Ratio 23.8 (10-20); Creatinine Clr Calc Pharmacy 17.7 ml/min; Est GFR (Non-African American) 17.2 ml/min; Potassium 4.2 mmol/L (3.5-5.1)
[2023-04-08 06:41] LABS: INR 1.1 (0.9-1.1); Partial Thromboplastin Ratio 1.2; Partial Thromboplastin Time 35.1 Seconds (21.0-31.0); Prothrombin Time 12.1 Seconds (9.0-12.0)
[2023-04-08 06:52] LABS: Hematocrit (blood only) 20.5 % (42.0-52.0); Hemoglobin 7.1 g/dl (14.0-18.0); Mean Corpuscular Hgb Conc 34.6 g/dL (32.0-36.0); Mean Corpuscular Volume 104.1 fL (80.0-100.0); Mean Platelet Volume 11.5 fL (9.4-12.4); Platelet Count 119 K/uL (130-400); RDW Coefficient of Variation 16.3 % (11.5-14.5); RDW Standard Deviation 60.9 fL (36.4-46.3); Red Blood Count 1.97 M/uL (4.70-6.10); White Blood Count 3.72 K/ul (4.8-10.8)
[2023-04-08] MEDS: PANTOprazole 40 MG in SYRINGE 0 ML IV SCH ×2 (08:23→15:25)
[2023-04-08] MEDS: FUROSEMIDE 40 MG/4 ML VIAL IV SCH (08:23)
--- NOTE | 2023-04-08 08:39 | Surgery Progress Note ---
Date of Service April 08, 2023 Assessment & Plan (1) Abdominal pain: (2) Acute cholecystitis: Plan: Patient not an operative candidate. We will discuss with interventional radiology to attempt to get a cholecystostomy tube placed. We will continue to follow along from the periphery and help as we can. Continue antibiotics. Admission and Anticipated Discharge Date Admission Date: April 06, 2023 Subjective Patient seen. Still relatively obtunded. He is not alert or oriented. Physical Exam Physical Exam: Obtunded. Unable to be aroused. Abdomen is soft. It is less tender than yesterday. There is no distention and no peritonitis Results & Data Vital Signs (Past 12 Hours) Vital Signs Temp Pulse Pulse Resp BP Pulse Ox O2 Del Method 04/08/23 08:02 101/57 L 04/08/23 07:53 92/49 L 04/08/23 07:27 73 19 84/43 L 99 Nasal Cannula 04/08/23 03:08 37.7 C H 110 H 20 104/60 96 Nasal Cannula 04/07/23 23:10 101 H 04/07/23 22:47 37.1 C 105 H 20 121/69 97 Nasal Cannula 04/07/23 20:55 Nasal Cannula O2 Flow Rate 04/08/23 08:02 04/08/23 07:53 04/08/23 07:27 2 04/08/23 03:08 2 04/07/23 23:10 04/07/23 22:47 2 04/07/23 20:55 2 PG Care Time/CCT Total # of Minutes Spent Total Time Spent with Patient: Total time spent is greater than 50% in coordination of care (as documented) at patient's floor/unit and/or counseling patient: Coding Level of Care Code 50102 SUB INP/OBS CARE 2/35MIN Diagnoses Abdominal pain R10.9 Acute cholecystitis K81.0
[2023-04-08] MEDS ORDERED: SODIUM CHLORIDE 0.9% 1000ML 1,000 ML IV ONE (09:15)
[2023-04-08] MEDS ORDERED: SODIUM CHLORIDE 0.9% 250 ML IV PRN (10:00)
[2023-04-08 10:02] LABS: HBSAG NON-REACTIVE (NON-REACTIVE); Hepatitis A Antibody IgM NON-REACTIVE (NON-REACTIVE); Hepatitis B Core Antibody IgM NON-REACTIVE (NON-REACTIVE)
--- NOTE | 2023-04-08 10:42 | Critical Care Consultation ---
Date of Consultation April 08, 2023 Assessment & Plan (1) Severe sepsis: (2) Acute cholecystitis: (3) Altered mental status: (4) Acute kidney injury superimposed on CKD: Plan 88-year-old male with likely underlying dementia, hypertension, type 2 diabetes mellitus, gout, hyperlipidemia and GERD who presented to the ICU due to worsening encephalopathy and signs of severe sepsis secondary to an intra- abdominal source. Neurologic: Avoid sedating medications at this time. Consider the use of Haldol as needed if he has worsening encephalopathy and agitated delirium. Pulmonary: Currently requiring low-flow oxygen. He appears to be protecting his airway at this time. He is a DNI as per the wishes of the patient's . Cardiovascular: He has had softer blood pressures at time, but his map today has been persistently above 65 mmHg. We will have a low threshold to initiate vasopressors. Obtain lactic acid level. Echo echo 04/06/2023 with severe pulmonary hypertension. Sclerotic aortic valve. Mild mitral regurgitation. EF 60 to 65% with moderate concentric LVH. Continue with as needed fluid boluses. Atrial fibrillation appears rate controlled at this time. Hold antihypertensives. Hold anticoagulants. Obtain EKG. Gastrointestinal: N.p.o. at this time. Consider placement of NG tube given distended abdomen. Hospitalist service is contacting [facility] for transfer to [facility] for placement of cholecystostomy tube. Awaiting back their recommendations. Renal: Patient with likely ischemic ATN due to hypotension overnight. We will continue to monitor creatinine closely. Continue to monitor urine output closely as well. Rosario catheter in place. Continue crystalloid infusions as needed. Infectious disease: Blood cultures from 04/06/2023 negative to date. Repeat blood cultures today. Continue broad-spectrum antibiotics for intra-abdominal sepsis. Hematologic: Patient with evidence of mildly worsening anemia likely due to hemodilution. We will give a unit of packed RBCs given his ongoing sepsis and mild hypotension. Iron deficiency anemia likely playing a role, however, would avoid IV iron for supplemental iron at this time given acute infection. Endocrine: Check TSH. Maintain glucose under 180. Consider initiation of hydrocortisone depending on further hemodynamics. Lines and tubes: Peripheral IVs and Rosario catheter in place. VTE prophylaxis: SCDs CODE STATUS: DNR/DNI Family at bedside: Patient's daughter extensively updated at bedside. Disposition: ICU with likely transfer to tertiary center for cholecystostomy tube pending response from tertiary center. I discussed the case in person with the patient's hospitalist, family and nursing. I reviewed the patient's chart extensively including relevant imaging and labs. I have personally spent 48 minutes of critical care time in the direct managem ent of this patient. This is a life/limb threatening event. This includes time spent evaluating patient, direct bedside care, chart review, placing orders, interpretation of diagnostic studies, discussion with consultants, patient, and family members, as well as other required patient management activities. This time is exclusive of all separately billable procedures, and teaching time and separate from and in addition to any other critical care service time. Thank you for allowing us to participate in the care of this patient. History of Present Illness Reason for Consultation: Severe sepsis Attending Physician: Any Ogden MD History of Present Illness 88-year-old male with a history of dementia, atrial fibrillation and CKD stage IV who presented to the hospital due to encephalopathy. ICU was consulted this morning due to worsening mental status and concerns for hypotension. Overnight the patient had hypotensive episodes with systolic blood pressures in the high 80s. He underwent a CT of the abdomen and pelvis 2 days ago which revealed the gallbladder was thickened with surrounding inflammation. There is also concern for possible perforation which was contained. General surgery evaluated the patient and did not feel that he was a surgical candidate given his advanced age and comorbidities. They recommended transfer to a tertiary center for a cholecystostomy tube. HIDA scan performed yesterday without evidence of common bile duct obstruction. There was "nonvisualization of the gallbladder compatible with cystic duct obstruction". Labs today are suggestive of worsening anemia with a hemoglobin of 7.1. Thrombocytopenia present with a platelet count of 119,000. Creatinine has progressively worsening during this hospitalization from 2.25-3.07. He does have a Rosario catheter in place. Patient is unable to give any history due to his severe encephalopathy. He is not following any commands. He does move his extremities spontaneously at times. Patient's daughter is at bedside who is able to relate some of the history. She notes that he has been following at home. There was concern for safety at home and she was contacting the area of aging. She notes that the patient and his are very reluctant to seek medical care. They live independently in [place]. Allergies Allergy/AdvReac Type Severity Reaction Status Date / Time No Known Allergies Allergy Unverified 07/09/16 10:03 Home Medications Medication Instructions Recorded Confirmed Type allopurinol 100 mg tablet 100 mg PO DAILY 04/06/23 04/06/23 History aspirin 325 mg tablet 325 mg PO DAILY 04/06/23 04/06/23 History doxazosin 4 mg tablet 4 mg PO HS 04/06/23 04/06/23 History glipizide 5 mg tablet, extended 5 mg PO BID 04/06/23 04/06/23 History release 24 hr insulin glargine 100 unit/mL (3 12 unit subcut DAILY 04/06/23 04/06/23 History mL) subcutaneous pen (Lantus Solostar U-100 Insulin) losartan 50 mg tablet 50 mg PO DAILY 04/06/23 04/06/23 History metoprolol succinate 100 mg 100 mg PO DAILY 04/06/23 04/06/23 History tablet,extended release 24 hr omeprazole 20 mg capsule,delayed 20 mg PO DAILY 04/06/23 04/06/23 History release pioglitazone 30 mg tablet 30 mg PO DAILY 04/06/23 04/06/23 History simvastatin 5 mg tablet 5 mg PO HS 04/06/23 04/06/23 History triamterene 37.5 1 tab PO DAILY 04/06/23 04/06/23 History mg-hydrochlorothiazide 25 mg tablet Patient History Medical History (Updated 04/08/23 @ 10:48 by Siva Austin MD) Acute kidney injury superimposed on CKD BPH (benign prostatic hyperplasia) Chronic kidney disease, stage 4 (severe) Essential tremor History of gastric ulcer Hyperlipidemia Hypertension Inguinal hernia Severe sepsis T2DM (type 2 diabetes mellitus) Surgical History History of resection of small bowel Social History Smoking Status: Former smoker Age Quit Using Tobacco: 38; Hx Alcohol Use: No Hx Substance Use: No Preferred Language: Upper Sorbian Communication Ability: Unable Nurse Orthopaedic Required: No Beliefs That Will Affect Care: None Current Living Situation: Spouse Current Living Situation Comment: unable to take care of patient, needs assistance. Other Information That Helps Us Care for You: No Feels Safe at Home: Yes Safety Concerns: Feels Safe At This Time Assistive Devices: Cane Review of Systems Review of Systems: All systems reviewed & are unremarkable except as noted in HPI & below Physical Exam Physical Exam: Constitutional: Elderly appearing male who appears to be in moderate distress. Eyes: Pupils are equal round and reactive to light. Conjunctivae are normal. Anicteric sclera. Ears nose, mouth and throat: Mallampati class 2. Normal posterior oropharynx. Uvula is midline. Neck: Trachea is midline. Visual inspection is normal. Respiratory: Clear to auscultation bilaterally. No use of accessory muscles. No significant clubbing noted. Cardiovascular: Regular rate and rhythm. No murmurs. No edema. Gastrointestinal: Distended abdomen which appears tender to palpation. Minimal bowel sounds. Musculoskeletal: No cyanosis. Patient is able to move all extremities. Skin: No rashes, warm dry and intact. Neurologic: Very lethargic with minimal response to voice. Moves extremities spontaneously. Psychiatric: Difficult to ascertain. Results & Data Results & Data Vital Signs (Past 12 Hours) Vital Signs Temp Pulse Pulse Resp BP Pulse Ox O2 Del Method 04/08/23 08:00 Nasal Cannula 04/08/23 10:14 87 04/08/23 08:02 101/57 L 04/08/23 07:53 92/49 L 04/08/23 07:27 73 19 84/43 L 99 Nasal Cannula 04/08/23 03:08 37.7 C H 110 H 20 104/60 96 Nasal Cannula 04/07/23 23:10 101 H 04/07/23 22:47 37.1 C 105 H 20 121/69 97 Nasal Cannula O2 Flow Rate 04/08/23 08:00 3 04/08/23 10:14 04/08/23 08:02 04/08/23 07:53 04/08/23 07:27 2 04/08/23 03:08 2 04/07/23 23:10 04/07/23 22:47 2 Coding Level of Care Code 27634 CRITICAL CARE 1ST 30-74M Diagnoses Severe sepsis A41.9; R65.20 Acute cholecystitis K81.0 Altered mental status R41.82 Acute kidney injury superimposed on CKD N17.9; N18.9 Time Spent (min) 48
--- NOTE | 2023-04-08 12:31 | Palliative Care Consultation ---
Date of Consultation April 08, 2023 Assessment & Plan (1) Palliative care by specialist: Met with pt family. He is unable to participate in careProvided overview of Palliative Medicine, a subspecialty that provides specialized medical care for people living with a serious illness by offering a focus on quality of life. Palliative Medicine is often conflated with hospice: I advised patient/family that Palliative and hospice can be partners but we are not the same. It is important to understand the difference so that we may be informed, and not afraid. Palliative Medicine works to improve QOL through reduction of symptom burden/more control over their illness, for both the patient and family. Palliative medicine clinicians are board certified, specially-trained and another member of the patient's medical care team. We often provide an extra layer of support because our care is based on the needs of the patient, not the prognosis; as such, it's appropriate at any age/advancing stage of a serious illness and can be provided along with curative treatment. Palliative Medicine clinicians are also trained in advanced communication methodologies, to facilitate complex discussions about advanced illness planning, which are needed to help assure that the treatment choices match the patient's goals, aka delivering Goal Concordant care. Finally, we discussed that hospice is a visiting nurse service that focuses on care delivered at the very end of life for patients with terminal illness, with life expectancy less than 6 month. (2) Advanced care planning/counseling discussion: A face to face family meeting for ACP and GOC was held at bedside with pt of 68yr, Rina, and his daughter from [facility] for 60 min. Rina shares pt was not a fan of medical care or doctoring. He has been in a steady state of decline for about a year, and becoming more confused/distracted and forgetful. Rina notes she suspected he was evolving a progressive dementia. He was spending more time in a resting state though he was still able to take care of his ADLs for the most part, sometimes needed either prompting or assistance from her. She adds he has been steadily losing weight as well. She states "he would not have even wanted to come here, he would be so angry if he knew and he would never agree to a surgery or transfer. He would tell you 'just let me go in peace,' and then he would tell you to let him go home." Rina states pt avoided medical care whenever possible and often sought routine care/PCP care reluctantly. He did not like medical settings or being away from home. She states they have over the years discussed wishes though he never wanted to formally write anything down stating instead that she would know what to do for him when the time came. Mary states this has been patient's MO for life, he does not like to do anything he does not want and he doesn't like being away from home/being poked and prodded or have things done to him. He preferred to live the way he wanted - at home, with his and doing things on his own terms. Rina had many questions about the procedure and recovery caty what coming home would be like - when advised he would need some rehab to help recover she was quick to note pt would refuse this and only agree to go home but she then also as quickly notes she would not be able to manage medical care on her own at home caty wounds or drains etc. 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 Rina was very clear this would not be acceptable QOL for pt and that he would not want to be dependent on others for basic care needs etc. He was proud and independent. She wants to honor his wishes and not do things to him he would not want. She states she is not going to proceed with transfer or surgery because she knows without any doubt pt would not want these interventions and she is going to honor his wishes. Mary in total agreement, noting that she did not want to make decisions for pt or push Mom to make a choice one way or the other, but that she also feels this si what pt would want for himself. Comfort care reviewed. Advised we will start low dose Dilaudid infusion for comfort. Will keep Abtx for now as family from [place] and [place] are en route. Son from [place] has an [address] here. tells me she is aware he does not have long to live and just wants his time to be comfortable, peaceful and pain free. She asked what to expect and we discussed changes pt may move through in the dying process including but not limited to sleeping more, disorientation when awake, restlessness, diminished senses/inability to respond to stimulus although ability to be aware of them remains intact longer, changes in body temperatures, skin changes/mottling/cyanosis, respiratory pattern changes, oral secretions. Family verbalized understanding. The goal is to assure a peaceful . (3) Severe sepsis: (4) Acute respiratory failure with hypoxia: (5) Altered mental status: (6) Abdominal pain: (7) Rapid atrial fibrillation: (8) Acute kidney injury superimposed on CKD: (9) Acute metabolic encephalopathy: Plan * Move to comfort care as noted in ACP discussion above. * Cancel transfer to [facility]/no surgery, Dr Ogden aware * Comfort care orders written. Will begin Dilaudid infusion 0.2mg per hour and use 0.3mg IV bolus q15min prn BTP/air hunger, titrate to comfort per protocol. * and family in agreement for comfort care. has given consent for her 2 daughters to receive info but no one else. Mary notes that there have been extended family members (specifically adult grandchildren "getting out of line and trying to force my Mom to do what they think needs to be done instead of letting her do what she feels is best for Dad." * I have updated nursing, CCM and primary teams. Thank you for allowing us to participate in the ongoing care of this patient. Please don't hesitate to call or page with any additional concerns. Dr. Isabella Viveros DNP Director, Palliative Care History of Present Illness Reason for Consultation: severe sepsis, GB perforation Attending Physician: Any Ogden MD History of Present Illness Nimesh Lind was admitted 04/06 23 as transfer from [facility]. He has underlying dementia, hypertension, type 2 diabetes mellitus, gout, hyperlipidemia and GERD. He came to local ED with worsening encephalopathy and signs of severe sepsis secondary to an intra-abdominal source which required transfer to [facility]. At time of presentation, daughter stated to providers that there has been a steady decline in his cognitive status over the past few years, quickly declining over the past 2 months and a steep decline over the past 1 week - unclear etiology. he is progressively worsening. Hospitalist service is waiting to hear back from [facility] re transfer to tertiary center for placement of cholecystostomy tube. He developed ATN (ischemic) overnight. BC NTD Per admitting note: "Nimesh Lind is an 88 year old male who was accepted by my colleague for transfer from [facility] due to altered mental status. Unable to get any history from the patient due to current sedation after benzodiazepines given at [facility]. His and two daughters later arrived at bedside to give history. They report significant decline over the last two days with him complaining of abdominal pain, one episode of vomiting and diarrhea. No fever, chills, shortness of breath, chest pain. He has a cough although unclear how long this has been going on for. Associated generalized weakness, confusion and sleeping throughout the day. His and daughters are in disagreement about more chronic decline however and it appears over the last year or 6 months he has been getting weaker and increased sleeping throughout the day but nothing like the last few days. In the ER at [facility] there was some concern of sepsis with hypoglycemia (he is on glipizide and Lantus for his diabetes) so he received Zosyn, 1L NSS bolus and dextrose. He was agitated and pulling at his IVs therefore initially given droperidol and later midazolam then lorazepam prior to transfer. Subsequent CT and lab workup was concerning for elevated LFTs with leukopenia without subsequent imaging changes on CT." Allergies Allergy/AdvReac Type Severity Reaction Status Date / Time No Known Allergies Allergy Unverified 07/09/16 10:03 Home Medications Medication Instructions Recorded Confirmed Type allopurinol 100 mg tablet 100 mg PO DAILY 04/06/23 04/06/23 History aspirin 325 mg tablet 325 mg PO DAILY 04/06/23 04/06/23 History doxazosin 4 mg tablet 4 mg PO HS 04/06/23 04/06/23 History glipizide 5 mg tablet, extended 5 mg PO BID 04/06/23 04/06/23 History release 24 hr insulin glargine 100 unit/mL (3 12 unit subcut DAILY 04/06/23 04/06/23 History mL) subcutaneous pen (Lantus Solostar U-100 Insulin) losartan 50 mg tablet 50 mg PO DAILY 04/06/23 04/06/23 History metoprolol succinate 100 mg 100 mg PO DAILY 04/06/23 04/06/23 History tablet,extended release 24 hr omeprazole 20 mg capsule,delayed 20 mg PO DAILY 04/06/23 04/06/23 History release pioglitazone 30 mg tablet 30 mg PO DAILY 04/06/23 04/06/23 History simvastatin 5 mg tablet 5 mg PO HS 04/06/23 04/06/23 History triamterene 37.5 1 tab PO DAILY 04/06/23 04/06/23 History mg-hydrochlorothiazide 25 mg tablet Patient History Medical History (Updated 04/08/23 @ 12:45 by Isabella Viveros DNP) Acute kidney injury superimposed on CKD Advanced care planning/counseling discussion BPH (benign prostatic hyperplasia) Chronic kidney disease, stage 4 (severe) Essential tremor History of gastric ulcer Hyperlipidemia Hypertension Inguinal hernia Palliative care by specialist Severe sepsis T2DM (type 2 diabetes mellitus) Surgical History History of resection of small bowel Social History Smoking Status: Former smoker Age Quit Using Tobacco: 38; Hx Alcohol Use: No Hx Substance Use: No Preferred Language: Barbadian Communication Ability: Unable Fire Coordinator Required: No Beliefs That Will Affect Care: None Current Living Situation: Spouse Current Living Situation Comment: unable to take care of patient, needs assistance. Other Information That Helps Us Care for You: No Feels Safe at Home: Yes Safety Concerns: Feels Safe At This Time Assistive Devices: Cane Review of Systems Review of Systems: Unobtainable due to cognitive status and Unobtainable due to reduced consciousness Physical Exam Constitutional: + acute distress, + ill appearing, + altered mental status, + in distress and + lethargic Eyes: PERRL ENMT: external ear and nose normal, oropharynx normal dentition fair Neck: normal visual inspection, trachea midline and + facial hair Respiratory: + labored breathing (moderate, +abd breathing) and + uses accessory muscles Auscultation: + diminished lung sounds and + rhonchi Cardiovascular: Rate/Rhythm: + tachycardic and + irregularly irregular Gastrointestinal (Abdomen): Inspection/Auscultation: + abdomen distended and + hypoactive bowel sounds Percussion/Palpation: + abdomen tender (right > left ) and + guarding Musculoskeletal: generalized weakness Skin: + turgor decreased, + skin tightening, + ecchymosis and + pallor Neurologic: lethargic/obtunded Results & Data Vital Signs (Past 12 Hours) Vital Signs Temp Pulse Pulse Resp BP BP Pulse Ox 04/08/23 12:20 37.6 C H 78 16 109/48 L 98 04/08/23 12:00 37.7 C H 89 19 109/48 L 98 04/08/23 11:40 37.8 C H 84 24 114/65 96 04/08/23 11:22 37.9 C H 80 20 118/56 L 98 04/08/23 11:07 38.0 C H 94 H 24 104/57 L 96 04/08/23 10:50 38.1 C H 109 H 22 116/47 L 96 04/08/23 08:00 04/08/23 10:14 87 04/08/23 08:02 101/57 L 04/08/23 07:53 92/49 L 04/08/23 07:27 73 19 84/43 L 99 04/08/23 03:08 37.7 C H 110 H 20 104/60 96 O2 Del Method O2 Flow Rate 04/08/23 12:20 04/08/23 12:00 2 04/08/23 11:40 04/08/23 11:22 04/08/23 11:07 04/08/23 10:50 2 04/08/23 08:00 Nasal Cannula 3 04/08/23 10:14 04/08/23 08:02 04/08/23 07:53 04/08/23 07:27 Nasal Cannula 2 04/08/23 03:08 Nasal Cannula 2 Laboratory Results data reviewed Diagnostic Findings data reviewed PG Care Time/CCT Total # of Minutes Spent Total Time Spent: 130 Total Time Spent with Patient: Total time spent is greater than 50% in coordination of care (as documented) at patient's floor/unit and/or counseling patient: I spent 130 minutes overall addressing this case: 20 in medical data review/discussion with referring provider(s) and/or preparation for the visit 15 in direct interaction with the patient 60 Advance Care Planning/Goals of Care discussions as detailed above in note (must be >16min) 15 in subsequent review and synthesis of assessment and plan 20 in communicating with other providers regarding the patient's case: [] Prolonged Care Time Prolonged Care Time: Yes Advanced Care Planning 72420 Advanced Care Planning 30 Min [id number] Advanced Care Planning Additional 30 [place] [address] IN/OBS CONSULT LVL 5,80M Patient Type New History Comprehensive Exam Comprehensive Medical Decision Making High Complexity Diagnoses Palliative care by specialist Z51.5 Advanced care planning/counseling discussion Z71.89 Severe sepsis A41.9; R65.20 Acute respiratory failure with hypoxia J96.01 Altered mental status R41.82 Abdominal pain R10.9 Rapid atrial fibrillation I48.91 Acute kidney injury superimposed on CKD N17.9; N18.9 Acute metabolic encephalopathy G93.41 Additional Codes Advanced Care Planning - 27650 Advanced Care Planning 30 Min: 01147 Advanced Care Planning 30 Min ([id number]) Advanced Care Planning - 04028 Advanced Care Planning Additional 30 Min: 88187 Advanced Care Planning Additional 30 Min ([id number]) Prolonged Care Time - Prolonged Care Time: Yes ([id number])
[2023-04-08] MEDS ORDERED: LORazepam 2 MG/1 ML VIAL IV PRN (13:35)
[2023-04-08] MEDS ORDERED: HYDROmorphone BOLUS from BAG IV PRN (13:35)
[2023-04-08] MEDS ORDERED: GLYCOPYRROLATE 0.2 MG/ML VIAL IV PRN (13:59)
[2023-04-08] MEDS: LORazepam 2 MG/1 ML VIAL IV PRN ×2 (15:34→21:08)
--- NOTE | 2023-04-08 15:57 | Hospitalist Progress Note ---
Date of Service April 08, 2023 Assessment & Plan (1) Acute metabolic encephalopathy: Plan: Patient still remains obtunded He is severely septic with gram-negative bacteremia Likely source is his gallbladder Family wishes comfort measures only Comfort care orders placed by palliative team. (2) Acute respiratory failure with hypoxia: Plan: Improved with diuresis Most likely secondary to oversedation, pulmonary edema, acute diastolic congestive heart failure Echocardiogram showed normal EF and moderate LVH (3) Elevated LFTs: Plan: Main presenting symptom of abdominal pain, vomiting CT abdomen and pelvis was initially read by [facility] radiologist as unremarkable, but was read by radiologist today as gallbladder perforation Transfer was arranged for percutaneous cholecystostomy tube placement, however family wishes comfort measures only Transfer canceled Patient continues to be on IV Zosyn Comfort measures initiated (4) Pulmonary edema: Plan: With bilateral pleural effusions. BNP elevated. Hypervolemic on exam. ?chronic due to CKD vs. acute Troponin I appears stable - not consistent with AL, suspect demand-ischemia. TTE showed no depressed EF Most likely secondary to acute diastolic congestive heart failure Discontinue diuresis Renal function worse today Clinical decline Comfort measures (5) Ehrlichiosis: Plan: Possible diagnosis - single inclusion body on one monocyte present on smear - concerning for ehrlichiosis. Decreased WBC (although this is similar to prior labs last year), elevated LFTs, mild thrombocytopenia Continue doxycycline 100mg IV BID Comfort measures have been decided on (6) Iron deficiency anemia: Plan: Concern for acute vs. chronic GI bleed. Appears relatively stable since [place] ER however. History of gastric ulcers Pantoprazole 80mg IV now then 40mg IV BID Iron sats 5% Type and cross sent to hold 2 units and blood consent signed Aim Hgb > 7 FOB positive Avoid heparin drip now that the patient is in A-fib/flutter Patient was ordered a unit of blood, however comfort measures and been decided on. (7) Abnormal urine sediment: Plan: Long string sediment in urine Per lab does not appear consistent with clot or parasite Surgical pathology on sample ordered Comfort measures (8) Hypertension: Plan: Hold all his anti-hypertensives at this time due to low BP. Discontinue Lasix Comfort measures (9) Hematuria: Plan: Unclear cause of hematuria at this time as nothing seen on CT A/P at [facility] ?traumatic catheterization Hold aspirin - unclear why he takes this, no Hx AL or stroke (10) Chronic kidney disease, stage 4 (severe): Plan: Creatinine worse today DIAN on CKD Noted hypotension overnight Likely secondary to severe sepsis Comfort measures (11) BPH (benign prostatic hyperplasia): Plan: Hold doxazosin, mulligan catheter in place (12) T2DM (type 2 diabetes mellitus): Plan: Comfort measures (13) Hypoglycemia: (14) Bilateral pleural effusion: (15) Rapid atrial fibrillation: Plan: Heart rate in the 130s Part of it could be pain related Treat pain Comfort measures Plan VTE Prophyalxis - chemical deferred given possibility of acute GI bleed Diet - NPO Spoke to daughter at the bedside. Spoke to data sme, [facility] transfer line, palliative team Admission and Anticipated Discharge Date Admission Date: April 06, 2023 Subjective I was informed by general surgery team that the patient has a gallbladder perforation, due to which our IR is not comfortable doing a percutaneous cholecystostomy tube placement. Transfer to [facility] was initiated and the patient was transferred. Patient was upgraded to the ICU after the data sme evaluated the patient. However, I was informed by the palliative team that the family now wants to proceed with comfort care measures only. They do not want the patient to be transferred. They do not want any surgery. Comfort measures initiated. Transfer was canceled. Review of Systems Review of Systems: Unobtainable due to reduced consciousness Physical Exam Physical Exam: General: Patient is obtunded Heart: S1, S2/regular rate and rhythm, no murmur rubs or gallops Lungs: Clear to auscultation bilaterally. Normal effort Abdomen: Soft/nondistended. Abdomen is diffusely tender to touch. No rebound, rigidity or guarding. No hepatosplenomegaly Extremities: No clubbing/cyanosis. No edema Behavior: Unable to assess Results & Data Results & Data Vital Signs (Past 12 Hours) Vital Signs Temp Pulse Pulse Resp BP BP Pulse Ox 04/08/23 14:00 37.3 C 73 15 91 04/08/23 14:00 113/82 04/08/23 13:01 37.4 C 78 17 98 04/08/23 13:01 109/58 L 04/08/23 13:00 37.4 C 77 16 96 04/08/23 15:22 36.9 C 80 15 105/60 96 04/08/23 12:20 37.6 C H 78 16 109/48 L 98 04/08/23 12:00 37.7 C H 89 19 109/48 L 98 04/08/23 11:40 37.8 C H 84 24 114/65 96 04/08/23 11:22 37.9 C H 80 20 118/56 L 98 04/08/23 11:07 38.0 C H 94 H 24 104/57 L 96 04/08/23 10:50 38.1 C H 109 H 22 116/47 L 96 04/08/23 08:00 04/08/23 10:14 87 04/08/23 08:02 101/57 L 04/08/23 07:53 92/49 L 04/08/23 07:27 73 19 84/43 L 99 O2 Del Method O2 Flow Rate 04/08/23 14:00 Room Air 04/08/23 14:00 04/08/23 13:01 04/08/23 13:01 04/08/23 13:00 04/08/23 15:22 Room Air 04/08/23 12:20 04/08/23 12:00 2 04/08/23 11:40 04/08/23 11:22 04/08/23 11:07 04/08/23 10:50 2 04/08/23 08:00 Nasal Cannula 3 04/08/23 10:14 04/08/23 08:02 04/08/23 07:53 04/08/23 07:27 Nasal Cannula 2 Laboratory Results Abnormal lab results 04/06/23 04/07/23 04/08/23 Range/Units 13:04 23:36 05:54 WBC 3.72 L (4.8-10.8) K/ul RBC 1.97 L (4.70-6.10) M/uL Hgb 7.1 L (14.0-18.0) g/dl Hct 20.5 L* (42.0-52.0) % MCV 104.1 H (80.0-100.0) fL MCH 36.0 H (25.0-34.0) pg RDW Std Deviation 60.9 H (36.4-46.3) fL RDW Coeff of Iman 16.3 H (11.5-14.5) % Plt Count 119 L (130-400) K/uL PT (9.0-12.0) Seconds APTT (21.0-31.0) Seconds Chloride (98-107) mmol/L BUN (6-23) mg/dl Creatinine (0.6-1.4) mg/dl BUN/Creatinine Ratio (10-20) Glucose (70-99(Fasting)) mg/dl POC Glucose 108 H (70-99) mg/dl Crossmatch See Detail 04/08/23 04/08/23 04/08/23 Range/Units 05:54 05:54 06:09 WBC (4.8-10.8) K/ul RBC (4.70-6.10) M/uL Hgb (14.0-18.0) g/dl Hct (42.0-52.0) % MCV (80.0-100.0) fL MCH (25.0-34.0) pg RDW Std Deviation (36.4-46.3) fL RDW Coeff of Iman (11.5-14.5) % Plt Count (130-400) K/uL PT 12.1 H (9.0-12.0) Seconds APTT 35.1 H (21.0-31.0) Seconds Chloride 113 H (98-107) mmol/L BUN 73 H (6-23) mg/dl Creatinine 3.07 H D (0.6-1.4) mg/dl BUN/Creatinine Ratio 23.8 H (10-20) Glucose 110 H (70-99(Fasting)) mg/dl POC Glucose 113 H (70-99) mg/dl Crossmatch Diagnostic Findings Abdomen/Pelvis CT 04/06/23 19:44 Exam(s): CT ABDOMEN + PELVIS With Contrast IV Amt: 82ml OPTIRAY 320 EXAM: CT Abdomen and Pelvis With Intravenous Contrast CLINICAL HISTORY: Reason for exam: abdominal pain, GNR bacteremia. TECHNIQUE: Axial computed tomography images of the abdomen and pelvis with intravenous contrast. Automated exposure control was utilized for the study. A dose lowering technique was utilized adhering to the principles of ALARA. CONTRAST: Patient received 82ml OPTIRAY 320 of IV contrast COMPARISON: No relevant prior studies available. FINDINGS: Lung bases: Unremarkable. No mass. No consolidation. ABDOMEN: Liver: Unremarkable. No mass. Gallbladder and bile ducts: Unremarkable. No calcified stones. No ductal dilation. Pancreas: Atrophy of the pancreas. No ductal dilation. Spleen: Unremarkable. No splenomegaly. Adrenals: Unremarkable. No mass. Kidneys and ureters: Unremarkable. No hydronephrosis or delayed nephrogram. Stomach and bowel: Cervical ventral wall thickening of the proximal transverse colon, concerning for mild colitis. Diverticulosis, without acute diverticulitis. No small bowel obstruction. No free intraperitoneal air. PELVIS: Appendix: Normal appendix. Bladder: Decompressed urinary bladder which contains a Mulligan catheter and mild wall thickening. Urinalysis recommended to exclude UTI. Reproductive: Enlarged prostate gland measures 6.2 cm. ABDOMEN and PELVIS: Intraperitoneal space: Mild abdominal ascites superior to the pancreas. No free air. Bones/joints: Degenerative changes of the spine. No acute fracture. No dislocation. Soft tissues: Small fat-containing bilateral inguinal hernias. Lipoma in the RIGHT tensor fascia daina measures 9.6 x 4.9 cm. Vasculature: Atherosclerotic changes of the aorta. No abdominal aortic aneurysm. Lymph nodes: Unremarkable. No enlarged lymph nodes. IMPRESSION: 1. Normal appendix. 2. Decompressed urinary bladder which contains a Mulligan catheter and mild wall thickening. Urinalysis recommended to exclude UTI. 3. Cervical ventral wall thickening of the proximal transverse colon, concerning for mild colitis. 4. Diverticulosis, without acute diverticulitis. No small bowel obstruction. No free intraperitoneal air. Electronically signed by: Pete Sutton MD 04/06/23 22:13 PM PG Care Time/CCT Total # of Minutes Spent Total Time Spent with Patient: Total time spent is greater than 50% in coordination of care (as documented) at patient's floor/unit and/or counseling patient: Coding Level of Care Code 87371 SUB INP/OBS CARE 3/50MIN Diagnoses Acute metabolic encephalopathy G93.41 Acute respiratory failure with hypoxia J96.01 Elevated LFTs R79.89 Pulmonary edema J81.1 Ehrlichiosis A77.40 Iron deficiency anemia D50.9 Abnormal urine sediment R82.90 Hypertension I10 Hematuria R31.9 Chronic kidney disease, stage 4 (severe) N18.4 BPH (benign prostatic hyperplasia) N40.0 T2DM (type 2 diabetes mellitus) E11.9 Hypoglycemia E16.2 Bilateral pleural effusion J90 Rapid atrial fibrillation I48.91
[2023-04-08] MEDS: HYDROmorphone/NSS 100 MG/100 ML BAG IV SCH (15:59)
[2023-04-08] MEDS ORDERED: HYDROmorphone INJ 0.5 MG/0.5 ML SYR IV PRN ×2 (21:22)
[2023-04-09] MEDS: PIPERACILLIN/TAZOBACTAM 4.5 GM in DEXTROSE 5% 100 ML IV SCH ×2 (05:53→15:32)
--- NOTE | 2023-04-09 08:04 | Hospitalist Progress Note ---
Date of Service April 09, 2023 Assessment & Plan (1) Acute metabolic encephalopathy: Plan: Patient presented with obtundation, AMS, suspected secondary to severe sepsis and gram negative bacteremia Likely source is his gallbladder Patient is comfort measures at this time, appreciate Palliative Care consult (2) Acute respiratory failure with hypoxia: Plan: Most likely secondary to level of sedation, pulmonary edema, acute diastolic congestive heart failure With bilateral pleural effusions. BNP elevated. Hypervolemic on exam. ?chronic due to CKD vs. acute Troponin I appears stable - not consistent with ME, suspect demand-ischemia. TTE showed no depressed EF Most likely secondary to acute diastolic congestive heart failure With continued clinical decline, patient comfort measures as of 04/08/23 (3) Elevated LFTs: Plan: Main presenting symptom of abdominal pain, vomiting CT abdomen and pelvis overread as suspected GB perforation Transfer was arranged for percutaneous cholecystostomy tube placement, however family wishes comfort measures only Patient continues to be on IV Zosyn while [place] (4) Pulmonary edema: Plan: See above (5) Ehrlichiosis: Plan: Possible diagnosis - single inclusion body on one monocyte present on smear - concerning for Ehrlichiosis Decreased WBC (although this is similar to prior labs last year), elevated LFTs, mild thrombocytopenia (6) Iron deficiency anemia: Plan: History of gastric ulcers Concern for acute vs. chronic GI bleed. Appears relatively stable since [place] ER, however Continue Pantoprazole 40mg IV BID (7) Hypertension: Plan: Comfort measures (8) Hematuria: Plan: Unclear cause of hematuria at this time as nothing seen on CT A/P at [facility] (9) Chronic kidney disease, stage 4 (severe): Plan: DIAN on CKD Likely secondary to severe sepsis Comfort measures (10) BPH (benign prostatic hyperplasia): Plan: Hold doxazosin, mulligan catheter in place (11) T2DM (type 2 diabetes mellitus): Plan: Comfort measures (12) Rapid atrial fibrillation: Plan: Heart rate in the 130s at times in the setting of pain and sepsis Comfort measures Plan Patient is cofort measures at this time, with several family members coming in today Admission and Anticipated Discharge Date Admission Date: April 06, 2023 Subjective No acute events overnight. Family reports patient appears less agitated and more comfortable today. Review of Systems Review of Systems: Unobtainable due to reduced consciousness Physical Exam Physical Exam: no acute distress, sleeping, comfortable appearing PG Care Time/CCT Total # of Minutes Spent Total Time Spent with Patient: Total time spent is greater than 50% in coordination of care (as documented) at patient's floor/unit and/or counseling patient: Coding Level of Care Code 94684 SUB INP/OBS CARE 2/35MIN Diagnoses Acute metabolic encephalopathy G93.41 Acute respiratory failure with hypoxia J96.01 Elevated LFTs R79.89 Pulmonary edema J81.1 Ehrlichiosis A77.40 Iron deficiency anemia D50.9 Hypertension I10 Hematuria R31.9 Chronic kidney disease, stage 4 (severe) N18.4 BPH (benign prostatic hyperplasia) N40.0 T2DM (type 2 diabetes mellitus) E11.9 Rapid atrial fibrillation I48.91
--- NOTE | 2023-04-09 08:05 | History & Physical Bridge Note ---
Date of Service April 09, 2023 History & Physical Bridge Note I have examined the patient, reviewed the History & Physical and in the interval since the performance of the History & Physical I have noted the following changes of clinical significance: Chart reviewed. Patient under palliative care for comfort measures. I agree he is not an operative candidate. We will sign off. Please call if we can assist in any way.
[2023-04-09] MEDS: PANTOprazole 40 MG in SYRINGE 0 ML IV SCH ×2 (09:04→10:27)
[2023-04-09 11:28] LABS: 7-Aminoclonaz, Confirm NEGATIVE ng/mL (<25); Hydro-Alp Ur, GC/MS NEGATIVE ng/mL (<25); Hydroxyethylflurazepam, Conf NEGATIVE ng/mL (<50); Hydroxymidazolam Ur, GC/MS 87 ng/mL (<50); Hydroxytriazolam NEGATIVE ng/mL (<50); Lorazepam, Ur GC/MS NEGATIVE ng/mL (<50); Nordiazepam, Confirm NEGATIVE ng/mL (<50); Oxazepam Ur, GC/MS NEGATIVE ng/mL (<50); Temazepam, Confirm NEGATIVE ng/mL (<50)
[2023-04-09] MEDS: LORazepam 2 MG/1 ML VIAL IV PRN ×2 (13:32→20:37)
--- NOTE | 2023-04-10 05:55 | Electrocardiogram Report ---
Test Reason : Blood Pressure : / mmHG Vent. Rate : 094 BPM Atrial Rate : 312 BPM P-R Int : 000 ms QRS Dur : 108 ms QT Int : 348 ms P-R-T Axes : 000 -52 086 degrees QTc Int : 435 ms Atrial flutter Left anterior fascicular block Abnormal ECG When compared with ECG of 06-APR-2023 12:56, Atrial flutter has replaced Sinus rhythm Left anterior fascicular block is now Present Confirmed by Dean Bran ([id number]) on 04/10/2023 5:55:07 AM Referred By: REFERRED SELF Confirmed By:Dean Bran
--- NOTE | 2023-04-10 08:46 | Hospitalist Progress Note ---
Date of Service April 10, 2023 Assessment & Plan (1) Acute metabolic encephalopathy: Plan: Patient presented with obtundation, AMS, suspected secondary to severe sepsis and gram negative bacteremia Likely source is his gallbladder Antibiotics discontinued Patient is comfort measures at this time, appreciate Palliative Care consult, gtt dosing increased today to aid in pain control (2) Acute respiratory failure with hypoxia: Plan: Most likely secondary to level of sedation, pulmonary edema, acute diastolic congestive heart failure With bilateral pleural effusions. BNP elevated. Hypervolemic on exam. ?chronic due to CKD vs. acute Troponin I appears stable - not consistent with [place], suspect demand-ischemia. TTE showed no depressed EF Most likely secondary to acute diastolic congestive heart failure With continued clinical decline, patient comfort measures as of 04/08/23 (3) Elevated LFTs: Plan: Main presenting symptom of abdominal pain, vomiting CT abdomen and pelvis overread as suspected GB perforation Transfer was arranged for percutaneous cholecystostomy tube placement, however family wishes comfort measures only (4) Pulmonary edema: Plan: See above (5) Ehrlichiosis: Plan: Possible diagnosis - single inclusion body on one monocyte present on smear - concerning for Ehrlichiosis Decreased WBC (although this is similar to prior labs last year), elevated LFTs, mild thrombocytopenia (6) Iron deficiency anemia: Plan: History of gastric ulcers Concern for acute vs. chronic GI bleed. Appears relatively stable since [place] ER, however Continue Pantoprazole 40mg IV BID (7) Hypertension: Plan: Comfort measures (8) Hematuria: Plan: Unclear cause of hematuria at this time as nothing seen on CT A/P at [facility] (9) Chronic kidney disease, stage 4 (severe): Plan: DIAN on CKD Likely secondary to severe sepsis Comfort measures (10) BPH (benign prostatic hyperplasia): Plan: Hold doxazosin, mulligan catheter in place (11) T2DM (type 2 diabetes mellitus): Plan: Comfort measures (12) Rapid atrial fibrillation: Plan: Heart rate in the 130s at times in the setting of pain and sepsis Comfort measures Plan Patient is comfort measures at this time Admission and Anticipated Discharge Date Admission Date: April 06, 2023 Subjective Noted by nursing staff to have some darker urine, bloody. No complaints from patient, did require a few prn doses of Dilaudid in addition to gtt for comfort. Otherwise no complaints from family or concerns from nursing staff Review of Systems Review of Systems: All systems reviewed & are unremarkable except as noted in Subjective Physical Exam Physical Exam: no acute distress, sleeping, comfortable appearing, ill appearing Neurologic: lethargic, obtunded PG Care Time/CCT Total # of Minutes Spent Total Time Spent with Patient: Total time spent is greater than 50% in coordination of care (as documented) at patient's floor/unit and/or counseling patient: Coding Level of Care Code 47969 SUB INP/OBS CARE 11/27MIN Diagnoses Acute metabolic encephalopathy G93.41 Acute respiratory failure with hypoxia J96.01 Elevated LFTs R79.89 Pulmonary edema J81.1 Ehrlichiosis A77.40 Iron deficiency anemia D50.9 Hypertension I10 Hematuria R31.9 Chronic kidney disease, stage 4 (severe) N18.4 BPH (benign prostatic hyperplasia) N40.0 T2DM (type 2 diabetes mellitus) E11.9 Rapid atrial fibrillation I48.91
--- NOTE | 2023-04-10 14:44 | Palliative Care Progress Note ---
Date of Service April 10, 2023 Assessment & Plan (1) Palliative care by specialist: (2) Severe sepsis: (3) Acute cholecystitis: (4) Rapid atrial fibrillation: (5) Abdominal pain: (6) Altered mental status: (7) Chronic kidney disease, stage 4 (severe): Plan tachy and diaphoretic. D/w , will gently increase dilaudid for comfort to 0.3mg per hour no other changes today family is very pleased with care pt is receiving. Thank you for allowing us to participate in the ongoing care of this patient. Please don't hesitate to call or page with any additional concerns. Dr. Isabella Viveros DNP Director, Palliative Care Admission and Anticipated Discharge Date Admission Date: April 06, 2023 Subjective pt on comfort care needed 4 ativan doses , dtr and son at bedside states she has been staying overnight patient has been comfortable with intermittent breakthrough episodes of pain and agitation he is mildly diaphoretic today and sl use of accessory muscles. remains pale but on the whole appears more comfortable not responding to verbal UOP decreasing, now dark and concentrated in appearance Review of Systems Review of Systems: Unobtainable due to reduced consciousness Physical Exam Constitutional: + acute distress, + ill appearing, + altered mental status, + in distress and + lethargic Eyes: PERRL ENMT: external ear and nose normal, oropharynx normal dentition fair Neck: normal visual inspection, trachea midline and + facial hair Respiratory: + respiratory distress, + labored breathing (moderate, +abd breathing) and + uses accessory muscles Auscultation: + diminished lung sounds and + rhonchi Cardiovascular: Rate/Rhythm: + tachycardic and + irregularly irregular Gastrointestinal (Abdomen): Inspection/Auscultation: + abdomen distended and + hypoactive bowel sounds Percussion/Palpation: + abdomen tender (right > left ) and + guarding Musculoskeletal: generalized weakness Skin: + turgor decreased, + ecchymosis and + pallor heels red -foams boots applied Neurologic: lethargic/obtunded PG Care Time/CCT Total # of Minutes Spent Total Time Spent: 49 Total Time Spent with Patient: Total time spent is greater than 50% in coordination of care (as documented) at patient's floor/unit and/or counseling patient: Coding [place] [address] SUB INP/OBS CARE 3/50MIN Patient Type Established History Comprehensive Exam Comprehensive Medical Decision Making Moderate Complexity Diagnoses Palliative care by specialist Z51.5 Severe sepsis A41.9; R65.20 Acute cholecystitis K81.0 Rapid atrial fibrillation I48.91 Abdominal pain R10.9 Altered mental status R41.82 Chronic kidney disease, stage 4 (severe) N18.4
[2023-04-10] MEDS: LORazepam 2 MG/1 ML VIAL IV PRN (15:02)
[2023-04-10] MEDS ORDERED: SODIUM CHLORIDE 0.9% 1000ML 1,000 ML IV SCH (16:30)
[2023-04-10] MEDS: HYDROmorphone/NSS 100 MG/100 ML BAG IV SCH (16:48)
[2023-04-10 23:57] LABS: Babesia microti DNA Not Detected (Not Detected); Ehrlichia chaff IgG Ab <1:64 (<1:64); Ehrlichia chaff IgM Ab <1:20 (<1:20)
--- NOTE | 2023-04-11 07:10 | Hospitalist Progress Note ---
Date of Service April 11, 2023 Assessment & Plan (1) Acute metabolic encephalopathy: Plan: Patient presented with obtundation, AMS, suspected secondary to severe sepsis and gram negative bacteremia Likely source is his gallbladder Antibiotics discontinued Patient is comfort measures at this time, appreciate Palliative Care consult, gtt dosing increased 04/11 to aid in pain control (2) Acute respiratory failure with hypoxia: Plan: Multifactorial secondary to level of sedation, pulmonary edema, acute diastolic congestive heart failure With bilateral pleural effusions. BNP elevated. Hypervolemic on exam. ?chronic due to CKD vs. acute Troponin I not consistent with [place], suspect demand-ischemia. TTE showed no depressed EF Most likely secondary to acute diastolic congestive heart failure With continued clinical decline, patient comfort measures as of 04/08/23 (3) Elevated LFTs: Plan: Main presenting symptom of abdominal pain, vomiting CT abdomen and pelvis overread as suspected GB perforation Transfer was arranged for percutaneous cholecystostomy tube placement, however family wishes comfort measures only (4) Pulmonary edema: Plan: See above (5) Ehrlichiosis: Plan: Possible diagnosis - single inclusion body on one monocyte present on smear - concerning for Ehrlichiosis Decreased WBC (although this is similar to prior labs last year), elevated LFTs, mild thrombocytopenia (6) Iron deficiency anemia: Plan: History of gastric ulcers Concern for acute vs. chronic GI bleed. Appears relatively stable since [place] ER, however (7) Hypertension: Plan: Comfort measures (8) Hematuria: Plan: Unclear cause of hematuria at this time as nothing seen on CT A/P at [facility] (9) Chronic kidney disease, stage 4 (severe): Plan: DIAN on CKD Likely secondary to severe sepsis Comfort measures (10) BPH (benign prostatic hyperplasia): Plan: Rosario catheter in place (11) T2DM (type 2 diabetes mellitus): Plan: Comfort measures (12) Rapid atrial fibrillation: Plan: Heart rate in the 130s at times in the setting of pain and sepsis Comfort measures Plan Patient is comfort measures at this time. Palliative Care is also following and assisting with medication adjustment as necessary Admission and Anticipated Discharge Date Admission Date: April 06, 2023 Subjective No acute events overnight, no complaints of distress from nursing staff or fa gloria members. PG Care Time/CCT Total # of Minutes Spent Total Time Spent with Patient: Total time spent is greater than 50% in coordination of care (as documented) at patient's floor/unit and/or counseling patient: Coding Diagnoses Acute metabolic encephalopathy G93.41 Acute respiratory failure with hypoxia J96.01 Elevated LFTs R79.89 Pulmonary edema J81.1 Ehrlichiosis A77.40 Iron deficiency anemia D50.9 Hypertension I10 Hematuria R31.9 Chronic kidney disease, stage 4 (severe) N18.4 BPH (benign prostatic hyperplasia) N40.0 T2DM (type 2 diabetes mellitus) E11.9 Rapid atrial fibrillation I48.91
--- NOTE | 2023-04-11 09:14 | Discharge Summary ---
Discharge Summary Date of Service April 11, 2023 Admission HPI Per Admitting Provider Nimesh Lind is an 88 year old male who was accepted by my colleague for transfer from [facility] due to altered mental status. Unable to get any history from the patient due to current sedation after benzodiazepines given at [facility]. His and two daughters later arrived at bedside to give history. They report significant decline over the last two days with him complaining of abdominal pain, one episode of vomiting and diarrhea. No fever, chills, shortness of breath, chest pain. He has a cough although unclear how long this has been going on for. Associated generalized weakness, confusion and sleeping throughout the day. His and daughters are in disagreement about more chronic decline however and it appears over the last year or 6 months he has been getting weaker and increased sleeping throughout the day but nothing like the last few days. In the ER at [facility] there was some concern of sepsis with hypoglycemia (he is on glipizide and Lantus for his diabetes) so he received Zosyn, 1L NSS bolus and dextrose. He was agitated and pulling at his IVs therefore initially given droperidol and later midazolam then lorazepam prior to transfer. Subsequent CT and lab workup was concerning for elevated LFTs with leukopenia without subsequent imaging changes on CT. Admission Exam Per Admitting Provider Constitutional: well developed; + not well nourished and no acute distress Eyes: + conjunctival abnormality (pale) ENMT: Mouth: + dry oral mucous membranes (no thrush noted) Respiratory: + labored breathing, + uses accessory muscles and + prolonged expiratory phase; not tachypneic Auscultation: + breath sounds absent (bibasal) and + diminished lung sounds (throughout); no crackles, no rales, no rhonchi and no wheezes Cardiovascular: Rate/Rhythm: regular rate and regular rhythm Heart Sounds: no murmur Vessels: no JVD Extremities: + pedal edema (2+ to knees pitting equal b/l); + abnormal capillary refill (reduced peripherally 7s, normal centrally) and no calf tenderness Gastrointestinal (Abdomen): Inspection/Auscultation: abdomen normal to inspection, + abdomen distended and + hypoactive bowel sounds Percussion/Palpation: + abdomen tender (RUQ), + guarding and abdomen soft; abdomen not rigid Skin: + pallor Neurologic: + does not move all extremities (moving both upper extremities equally) and + not awake (mumbles to noxious stimuli) Psychiatric: Orientation: + not alert Principal Dx & Hospital Course #1 = Principal Diagnosis (1) Palliative care by specialist: (2) Acute kidney injury superimposed on CKD: (3) Severe sepsis: (4) Acute cholecystitis: (5) Rapid atrial fibrillation: (6) Altered mental status: (7) Pulmonary edema: (8) Acute respiratory failure with hypoxia: (9) Acute metabolic encephalopathy: Plan Patient was admitted as transfer from [facility] for intraabdominal sepsis, acute respiratory failure, and metabolic encephalopathy. Ultimately found to have cholecystitis and suspected gallbladder perforation on abdominal imaging, with intra-abdominal cause of severe sepsis and suspected bacteremia. During this admission also noted to have acute CHF exacerbation, as well as AFib with RVR. Was in ICU for a time. After discussion with family and palliative care of patient's grave status, patient was transitioned to comfort measures on 04/08. Patient was made comfortable with IV pain medications (Dilaudid gtt), anxiolytics, agitation medications with good relief. On 04/11 called to bedside by nursing for notice of patient's passing. At 9:15AM I went to bedside and noted no heart beat, no respirations, pupils were fixed and dilated. Support and condolences provided to patient's family members who were at bedside. Discharge Exam no heart beat, no respirations, pupils fixed and dilated Updated Medication List Medication Instructions Recorded Confirmed Type allopurinol 100 mg tablet 100 mg PO DAILY 04/06/23 04/06/23 History aspirin 325 mg tablet 325 mg PO DAILY 04/06/23 04/06/23 History doxazosin 4 mg tablet 4 mg PO HS 04/06/23 04/06/23 History glipizide 5 mg tablet, extended 5 mg PO BID 04/06/23 04/06/23 History release 24 hr insulin glargine 100 unit/mL (3 12 unit subcut DAILY 04/06/23 04/06/23 History mL) subcutaneous pen (Lantus Solostar U-100 Insulin) losartan 50 mg tablet 50 mg PO DAILY 04/06/23 04/06/23 History metoprolol succinate 100 mg 100 mg PO DAILY 04/06/23 04/06/23 History tablet,extended release 24 hr omeprazole 20 mg capsule,delayed 20 mg PO DAILY 04/06/23 04/06/23 History release pioglitazone 30 mg tablet 30 mg PO DAILY 04/06/23 04/06/23 History simvastatin 5 mg tablet 5 mg PO HS 04/06/23 04/06/23 History triamterene 37.5 1 tab PO DAILY 04/06/23 04/06/23 History mg-hydrochlorothiazide 25 mg tablet Hospital Stay Data Consultations 04/06/23 16:41 Consult General Surgery Routine 04/07/23 08:23 Consult Infectious Diseases Routine 04/08/23 09:47 Consult Senior Counsel Routine 04/08/23 11:43 Consult Palliative Care Routine Diagnostic Imagining Performed 04/06/23 13:58 US liver Stat 04/06/23 19:44 CT Abd and Pelvis [CT abd pelvis IV con only] Stat Total Time Total Time Spent Total Time Spent (In Minutes): 30 minutes Coding Level of Care Code 29555 IN/OBS DISCH 30 MIN/LESS Diagnoses Palliative care by specialist Z51.5 Acute kidney injury superimposed on CKD N17.9; N18.9 Severe sepsis A41.9; R65.20 Acute cholecystitis K81.0 Rapid atrial fibrillation I48.91 Altered mental status R41.82 Pulmonary edema J81.1 Acute respiratory failure with hypoxia J96.01 Acute metabolic encephalopathy G93.41
--- NOTE | 2023-04-11 14:11 | Death Pronouncement Note ---
Date of Service April 11, 2023 Pronouncement Note Admission Date Admission Date: April 06, 2023 Date and Time of Date of : 04/11/23 Time of : 09:15 Contributing Factors (1) Acute metabolic encephalopathy: Contributing factors: sepsis and bacteremia due to gallbladder perforation and intraabdominal infection (2) Acute respiratory failure with hypoxia: (3) Elevated LFTs: (4) Pulmonary edema: (5) Ehrlichiosis: (6) Iron deficiency anemia: (7) Hypertension: (8) Hematuria: (9) Chronic kidney disease, stage 4 (severe): (10) BPH (benign prostatic hyperplasia): (11) T2DM (type 2 diabetes mellitus): (12) Rapid atrial fibrillation: Additional Data Confirmation of : no pulse, no respirations, no heart sounds and pupils fixed and dilated Family: at bedside Attending/PCP notified?: Yes Attending physician: Alea Huggins, DO Was code activated?: No Autopsy requested?: No
[2023-04-11 17:07] LABS: Ehrlichia chaff DNA Bld Negative (Negative)
== END 2023-04-11 10:21 | disposition expired | DRG 871 ==
LOC: 4W 12:20 → SUATTDRO 12:20 → 1E 04-08 10:41 → 3W 04-08 19:43